=== PATIENT | female | born 1935 | race Caucasian/White ===

== ENCOUNTER → 2016-11-17 09:54 | Outpatient (CLI) | payer MEDICARE, OTHER ==
[2015-05-03 08:26] VITALS: BMI 20.8
[~2016-11-17 09:54] MED LIST: AMBIEN10 MG PO; CALCIUM 250+D T1 TAB PO; COLACE100 MG PO; COREG 3.1253.125 MG PO; ECOTRIN325 MG PO; EVISTA60 MG PO; HYDROCHLOROTH12.5 M1 PO; HYDROCODON-ACE1 EAC7 PO; IMDUR30 MG PO; PEPCID20 MG PO; PLAVIX75 MG PO; PRAVACHOL40 MG PO; PRINIVIL20 MG PO; TRANXENE T-TA3.75 MG PO; TRANXENE T-TAB7.5 MG PO; ULTRAM50 MG PO; ZESTORETIC 20/21 TAB PO
== END | disposition home or self-care (01) ==
LOC: D.US 09:54
DX: I70.219 Atherosclerosis of native arteries of extremities with intermittent claudication, unspecified extremity (principal); I73.9 Peripheral vascular disease, unspecified; I25.10 Atherosclerotic heart disease of native coronary artery without angina pectoris

== ENCOUNTER 2017-06-29 08:31 | Outpatient (CLI) | payer MEDICARE, OTHER ==
[~2017-06-29] VITALS: Ht 162.6 cm; Wt 52.7 kg
--- NOTE | ~2017-06-29 | HEMODYNAMI ---
PATIENT:HAYDEE KIRBY MEDICAL RECORD: [id number] : 39 [facility] [id number] ADMISSION DATE: 06/29/17 Generatedon:06/30/20179:05 Patient name: HAYDEE KIRBY Patient #: [id number] SSN : : 1935 Date of study: 06/30/2017 Page: Of Hemodynamic Procedure Report Patient Data Patient Demographics Procedure consent was obtained First Name: HAYDEE Gender: Female Last Name: KOFI : 1935 [facility] Initial: KALYN Age: 81 year(s) Patient #: [id number] Race: Additional ID: [id number] Contact details Address: [address] [place] [address] [place] State: [place] City: [place] Zip code: [address] Past Medical History History of disease Date Diagnosis Comments CAD Valvular heart disease Hypertension Allergies: No known allergies Admission Admission Data Admission Date: 06/29/2017 Admission Time: 8:31 Room #: 2128 Height (in.): 64 BSA: 1.55 (m2) Height (cm.): 162.56 BMI: 19.91 (kg/m2) Weight (lbs.): 116 Weight (kg.): 52.62 Lab Results Lab Result Date: 06/29/2017 Lab Result Time: 8:50 Biochemistry Name Units Result Min Max BUN mg/dl 65 --(----)-* 7 18 Creatinine mg/dl 1.1 --(--*-)-- 0.6 1.3 CBC Name Units Result Min Max Hematocrit % 31.1 *-(----)-- 42 54 Hemoglobin g/dl 10.6 *-(----)-- 13.5 17.5 Procedure Procedure Types Cath Procedure PCI Procedure Coronary Stent Initial PTCA Initial Miscellaneous Procedures Moderate Sedation up to 15 minutes Procedure Description Procedure Date Procedure Date: 06/30/2017 Procedure Start Time: 8:46 Procedure End Time: 9:02 Procedure Staff Name Function Magdaleno Mcgowan MD Performing Physician Kassandra Davis RT Scrub Isabell Cannon RN Nurse Juan Rey RT Monitor Procedure Data Cath Procedure Fluoroscopy Diagnostic fluoroscopy Total fluoroscopy Time: 3.8 time: 3.8 min min Diagnostic fluoroscopy Total fluoroscopy dose: 281 dose: 281 mGy mGy Contrast Material Contrast Material Type Amount (ml) Isovue 300 47 Entry Location Entry Primary Successful Side Size Upsize Upsize Entry Closure Succes sful Closure Location (Fr) 1 (Fr) 2 (Fr) Remarks Device Remarks Femoral Left 6 Fr Exoseal artery Short Estimated blood loss: 10 ml Procedure Complications No complications Procedure Medications Medication Administration Route Dosage Oxygen NC 2 l/min Lidocaine 2% added to field 20 Heparin Flush Bag added to field 2 bags (1000units/500ml NS) 0.9% NaCl I.V. 100 ml/hr Versed I.V. 1 mg Fentanyl I.V. 50 mcg Versed I.V. 1 mg Fentanyl I.V. 50 mcg Heparin Bolus I.V. 4000 units Hemodynamics Rest BSA: 1.55 (m2) HGB: 10.6 (g/dl) O2 Consumption: Estimated: 163.6 (ml/min) O2 Con sumption indexed: Estimated:105.55 (ml/min/m) Heart Rate: 111 (bpm) Snapshots Pre Cath Intra NCS Post Cath Vital Signs Time Heart Resp SPO2 NIBP (mmHg) Rhythm Pain Sedation Rate (ipm) (%) Status Level (bpm) 8:14:27 111 26 95 134/76(93) NSR 0 (11) 10(A) , No pain 8:18:33 113 21 96 135/74(101) NSR 0 (11) 10(A) , No pain 8:22:48 111 19 95 113/58(88) NSR 0 (11) 10(A) , No pain 8:26:58 104 28 96 93/60(74) NSR 0 (11) 10(A) , No pain 8:31:06 101 24 95 106/57(78) NSR 0 (11) 10(A) , No pain 8:35:12 100 22 94 100/62(67) NSR 0 (11) 10(A) , No pain 8:39:20 98 17 96 116/63(85) NSR 0 (11) 10(A) , No pain 8:43:34 98 32 94 104/56(76) NSR 0 (11) 10(A) , No pain 8:47:48 97 32 94 111/52(76) NSR 0 (11) 9(A) , No pain 8:52:04 97 28 94 91/49(66) NSR 0 (11) 9(A) , No pain 8:56:10 97 34 96 104/58(82) NSR 0 (11) 9(A) , No pain 9:00:19 93 26 94 105/61(80) NSR 0 (11) 10(A) , No pain Medications Time Medication Route Dose Verified Delivered Reason Notes Effectiveness by by 8:13:33 Oxygen NC 2 Magdaleno Whyte used for l/min Roslyn Cannon RN procedure 8:13:50 Lidocaine 2% added 20ml Magdaleno Magdaleno used for to vial Roslyn Mcgowan MD procedure field 8:14:59 Heparin Flush added 2 Magdaleno Magdaleno used for Bag to bags Roslyn Mcgowan MD procedure (1000units/500ml field NS) 8:15:09 0.9% NaCl I.V. 100 Magdaleno Whyte Per physician ml/hr Roslyn Cannon RN 8:43:36 Versed I.V. 1 mg Magdaleno Whyte for sedation Roslyn Cannon RN 8:43:42 Fentanyl I.V. 50 Magdaleno Whyte for sedation mcg Roslyn Cannon RN 8:47:22 Versed I.V. 1 mg Magdaleno Whyte for sedation Roslyn Cannon RN 8:47:26 Fentanyl I.V. 50 Magdaleno Whyte for sedation mcg Roslyn Cannon RN 8:48:35 Heparin Bolus I.V. 4000 Magdaleno Whyte for verifie d units Roslyn Cannon RN anticoagulation with dr mcgowan Procedure Log Time Note 7:38:21 Diagnostic Cath status Elective 7:45:48 Isabell Cannon RN sent for patient. Start room use. 8:13:33 Oxygen 2 l/min NC was administered by Isabell Cannon RN; used for procedure; 8:13:34 Vital chart was started 8:13:50 Lidocaine 2% 20ml vial added to field was administered by Magdaleno Mcgowan MD; used for procedure; 8:14:59 Heparin Flush Bag (1000units/500ml NS) 2 bags added to field was administered by Magdaleno Mcgowan MD; used for procedure; 8:15:09 0.9% NaCl 100 ml/hr I.V. was administered by Isabell Cannon RN; Per physician; 8:19:55 Time tracking: Regular hours 8:20:02 Plan of Care:Hemodynamics will remain stable., Cardiac rhythm will remain stable., Comfort level will be maintained., Respiratory function will remain adequate., Patient/ family verbilizes understanding of procedure., Procedure tolerated without complication., Recovers from procedure without complications.. 8:20:09 Patient received from PCU to CCL 2 Alert and oriented. Tansferred to table in Supine position. 8:20:09 Warm blankets applied, and judi hugger turned on for patient comfort. 8:20:10 Correct patient and procedure confirmed by team. 8:20:11 Signed procedure consent form obtained from patient. 8:20:12 ECG and BP/O2 sat monitors applied to patient. 8:20:14 Baseline sample Acquired. 8:20:27 Rhythm: sinus tachycardia 8:20:28 Full Disclosure recording started 8:21:22 H&P Date Dictated: 06/29/2017 Within 30 days and on chart.. 8:21:23 Pre-procedure instructions explained to patient. 8:21:23 Pre-op teaching completed and patient verbalized understanding. 8:21:27 Family in patients room. 8:21:28 Patient NPO since Midnight. 8:21:31 Patient allergic to No known allergies 8:21:34 Is the patient allergic to Iodine/contrast media? No. 8:21:35 Is patient on blood thinner?Yes 8:21:37 ACC The patient was administered the following blood thiners within the last 24 hours: ACCPlavix 8:21:38 Patient diabetic? No. 8:21:40 Previous problem with sedation/anesthesia? No ? 8:21:41 Snore? No 8:21:42 Sleep apnea? No 8:21:42 Deviated septum? No 8:21:43 Opens mouth fully? Yes 8:21:48 Sticks out tongue? Yes 8:21:50 Airway obstruction? No ? 8:21:52 Dentures? No ? 8:21:55 Pre procedure: left dorsailis pedis pulse 1+ Palpable, but thready & weak; easily obliterated 8:21:58 Patient pain scale 0/10 ?. 8:22:10 IV patent on arrival in right forearm with 0.9% NaCl at [facility]. 8::51 Lab Result : BUN 65 mg/dl 8::51 Lab Result : Creatinine 1.1 mg/dl 8::51 Lab Result : Hemoglobin 10.6 g/dl 8::51 Lab Result : Hematocrit 31.1 % 8:23:08 Cook 18G 7cm Percutaneous Entry needle opened to sterile field. 8:23:13 Lab results completed and on chart. 8:23:16 Left groin area was prepped with chlora-prep and draped in sterile fashion 8:23:17 Alarms reviewed by R. N. 8:23:18 Sharps counted by scrub and verified by R.N. 8:23:20 Use device set Femoral PCI 8:23:21 Tegaderm 4 x 4 opened to sterile field. 8:23:22 Acist Manifold opened to sterile field. 8:23:23 Acist Syringe opened to sterile field. 8:23:23 Acist Hand Control opened to sterile field. 8:23:25 Bag Decanter opened to sterile field. 8:23:25 Medline Cath Pack opened to sterile field. 8:23:26 Terumo 6Fr Clearfield Sheath opened to sterile field. 8:23:26 St Jose 260cm J .035 wire opened to sterile field. 8:23:26 Merit BasixCompak Inflation Kit opened to sterile field. 8:23:32 Guzman Whisper J 300cm 0.014 guide wire opened to sterile field. 8:34:48 Zero performed for pressure channel P1 8:38:47 Physician arrived 8:38:47 --------ALL STOP TIME OUT------ 8:38:48 Final Timeout: patient, procedure, and site verified with staff and physician. All members of the team are in agreement. 8:38:49 Left groin site verified by team. 8:38:52 Physical assessment completed. ASA score P 2 - A patient with mild systemic disease as per Magdaleno Mcgowan MD. 8:38:54 Sedation plan: IV Moderate Sedation Versed, Fentanyl 8:43:36 Versed 1 mg I.V. was administered by Buffie Cannon RN; for sedation; 8:43:42 Fentanyl 50 mcg I.V. was administered by Isabell Cannon RN; for sedation; 8:43:43 Cordis 6FR XBLAD 3.5 guide catheter opened to sterile field. 8:46:04 Procedure started. 8:46:08 Local anesthetic to left femerol artery with Lidocaine 2% by Magdaleno Mcgowan MD.INITIAL ACCESS ONLY 8:46:16 A 6 Fr Short sheath was inserted into the Left Femoral artery 8:47:01 6 Fr XBLAD 3.5 guide catheter was inserted over the wire 8:47:22 Versed 1 mg I.V. was administered by Isabell Cannon RN; for sedation; 8:47:26 Fentanyl 50 mcg I.V. was administered by Isabell Cannon RN; for sedation; 8:47:37 Guide Catheter removed. unable to cannulate vessel. 8:47:44 Cordis 6FR XBLAD 4.0 guide catheter opened to sterile field. 8:47:49 6 Fr XBLAD 4 guide catheter was inserted over the wire 8:48:35 Heparin Bolus 4000 units I.V. was administered by Isabell Cannon RN; for anticoagulation; verified with dr mcgowan 8:48:45 LCA angiography performed. 8:51:01 WHISPER wire advanced. 8:51:29 Wire advanced across lesion. 8:51:38 Inflation Number: 1 A Chilton OTW 2.5 x 15 stent was prepped and advanced across the Ramus. The stent was deployed at 11 ARTURO for 0:10 (min:sec). 8:52:10 Stent catheter was removed intact over wire. 8:52:16 Wire redirected to CX. 8:52:56 Wire advanced across lesion. 8:53:15 Inflation number: 1 The stent balloon was then re-inflated across the Mid CX to 11 ARTURO for 0:10 (min:sec). 8:53:26 Inflation number: 2 The stent balloon was then re-inflated across the Mid CX to 7 ARTURO for 0:10 (min:sec). 8:53:43 Balloon removed over the wire. 8:53:44 Wire removed. 8:53:44 Guide catheter removed. 8:53:50 Cordis 6Fr Exoseal opened to sterile field. 8:54:02 Sheath removed intact; hemostasis achieved with Exoseal to the Left Femoral artery. 8:54:03 Procedure ended.(Physican Out) 8:56:45 Fluoroscopy time 03.80 minutes. 8:56:50 Flurop Dose total: 281 8:56:50 Fluoroscopy dose: 281 mGy 8:57:11 Contrast amount:Isovue 300 47ml. 8:57:13 Sharps counted by scrub and verified by R.N. 8:57:18 Insertion/operative site no bleeding no hematoma. 8:57:21 Post-op/insertion site Left Femoral artery dressed using a 4 x 4 and Tegaderm. 8:57:26 Post left femerol artery:stable, soft, clean and dry 8:57:27 Post Procedure Pulses reassessed and unchanged 8:57:30 Post-procedure physical assessment completed. ASA score P 2 - A patient with mild systemic disease as per Magdaleno Mcgowan MD. 8:57:33 Post procedure rhythm: unchanged. 8:57:35 Estimated blood loss: 10 ml 8:57:36 Post procedure instruction explained to patient.Patient verbalizes understanding. 8:57:37 Patient needs reinforcement of post procedure teaching. 8:58:10 Procedure type changed to Cath procedure, PCI procedure, Coronary Stent Initial, PTCA Initial, Miscellaneous Procedures, Moderate Sedation up to 15 minutes 9:02:27 Procedure and supply charges have been captured, reviewed, submitted and are correct. 9:02:30 Procedure Complication : No complications 9:02:32 Vital chart was stopped 9:02:32 See physician's report for complete and final results. 9:02:34 Report given to PCU. 9:02:48 Patient transfered to PCU with Stretcher. 9:02:51 Procedure ended. 9:02:51 Full Disclosure recording stopped 9:02:55 End room use (Document Last) Intervention Summary Intervention Notes Time ActionType Lesion and Equipment Action# Pressure Duration Attributes Used 8:51:38 Place stent Ramus Chilton OTW 1 11 00:10 2.5 x 15 stent 8:53:15 Reinflate Mid CX Guan[place]ito OTW 1 11 00:10 stent 2.5 x 15 balloon stent 8:53:26 Reinflate Mid CX Chilton OTW 2 7 00:10 stent 2.5 x 15 balloon stent Device Usage Item Name Manufacture Quantity Catalog Hospital Part Current Minima l Lot# / Number Charge Number Stock Stock Serial# Code Ibex Outdoor Clothing 18G [facility] [id number] 11378 820187 5 Percutaneous Entry needle Tegaderm 4 x 3M 1 1626W 136451 955273 253697 5 4 Acist Acist 1 46256 712770 551925 389132 5 Manifold Medical [employer] Inc Acist Acist 1 32965 847702 836471 554339 20 Syringe Medical Systems Inc Acist Hand Acist 1 87263 804491 207901 985221 5 Control Medical Systems Inc Bag Decanter Microtek 1 2002S 635770 55549 448834 5 Medical Inc. Medline Cath Cardinal 1 [id number] 737768 85184 850066 5 Pack Health Terumo 6Fr Terumo 1 [id number] 876383 035136 448358 [address] Jose 1 770282 371348 073969 104364 30 260cm J .035 wire Merit Merit 1 [id number] 993797 325023 195459 15 BasixCompak Medical Inflation Kit Guzman Guzman 1 [id number] 574385 944217 844517 5 Whisper J Vascular 300cm 0.014 guide wire Cordis 6FR Cardinal 1 [id number] 032464 376989 798111 3 XBLAD 4.0 Health guide catheter Guan[place]ito OTW 2.5 Medtronic 1 [id number] 722535 72920 483140 5 [id number] x 15 stent Cordis 6Fr Cardinal 1 EX600 395692 634219 053265 10 Exoseal Health Cordis 6FR Cardinal 1 [id number] 020976 849311 412090 10 XBLAD 3.5 Health guide catheter Signature Audit [place] Stage Time Signature Unsigned Intra-Procedure 06/30/2017 Juan Rey 9:05:04 AM RT(R) Signatures Monitor : Juan Rey RT Signature : Date : Time : [facility] [address] [place] [address]
--- NOTE | ~2017-06-29 | HEMODYNAMI ---
PATIENT:HAYDEE KIRBY MEDICAL RECORD: [id number] : 39 LOCATION:[facility] ADMISSION DATE: 06/29/17 Generatedon:06/29/201711:03 Patient name: HAYDEE KIRBY Patient #: [id number] SSN : : 1935 Date of study: 06/29/2017 Page: Of Hemodynamic Procedure Report Patient Data Patient Demographics Procedure consent was obtained First Name: HAYDEE Gender: Female Last Name: KOFI : 1935 [facility] Initial: KALYN Age: 81 year(s) Patient #: [id number] Race: Additional ID: [id number] Contact details Address: [address] [place] [address] [place] State: [place] City: [place] Zip code: [address] Past Medical History History of disease Date Diagnosis Comments CAD Valvular heart disease Hypertension Allergies: No known allergies Admission Admission Data Admission Date: 06/29/2017 Admission Time: 8:31 Height (in.): 64 BSA: 1.55 (m2) Height (cm.): 162.56 BMI: 19.91 (kg/m2) Weight (lbs.): 116 Weight (kg.): 52.62 Procedure Procedure Types Cath Procedure Diagnostic Procedure LHC LHC w/Coronaries w/Grafts PCI Procedure PTCA Initial Miscellaneous Procedures Moderate Sedation up to 30 minutes Procedure Description Procedure Date Procedure Date: 06/29/2017 Procedure Start Time: 10:36 Procedure End Time: 11:03 Procedure Staff Name Function Magdaleno Mcgowan MD Performing Physician Gayla Augustin RT Scrub Roney Oneil RT Scrub Lan Martinez RN Nurse Mireya Joseph RT Monitor Peng Cesar RN Corporate Travel Manager Procedure Data Cath Procedure Fluoroscopy Diagnostic fluoroscopy Total fluoroscopy Time: time: 10.2 min 10.2 min Diagnostic fluoroscopy Total fluoroscopy dose: 305 dose: 305 mGy mGy Contrast Material Contrast Material Type Amount (ml) Isovue 300 105 Entry Location Entry Primary Successful Side Size Upsize Upsize Entry Closure Succes sful Closure Location (Fr) 1 (Fr) 2 (Fr) Remarks Device Remarks Femoral Right 6 Fr Exoseal artery Short Estimated blood loss: 10 ml Diagnostic catheters Device Type Used For End Catheter Placement Cordis 5Fr Pigtail LV Angiography Catheter (MP) Cordis 5Fr JL 4.0 Left Coronary Catheter (MP) Angiography Cordis 5Fr 3DRC Catheter Internal mammary (MP) arteriography Cordis 5Fr 3DRC Catheter Right Coronary (MP) Angiography Diagnostic Infinity 5Fr Right Coronary AR 2 MOD catheter Angiography Procedure Complications No complications Procedure Medications Medication Administration Route Dosage 0.9% NaCl I.V. 100 ml/hr Oxygen NC 2 l/min Heparin Flush Bag added to field 2 bags (1000units/500ml NS) Lidocaine 2% added to field 20 Versed I.V. 1 mg Fentanyl I.V. 50 mcg Fentanyl I.V. 50 mcg Heparin Bolus I.V. 4000 units Integrilin (Bolus I.V. 4.5 ml 2mg/ml) Hemodynamics Rest BSA: 1.55 (m2) O2 Consumption: Estimated: 160.84 (ml/min) O2 Consumption indexed : Estimated:103.77 (ml/min/m) Heart Rate: 106 (bpm) Snapshots Pre Cath Intra NCS Post Cath Vital Signs Time Heart Resp SPO2 etCO2 [id number] NIBP (mmHg) Rhythm Pain Sedation Rate (ipm) (%) (mmHg) (mmHg) Status Level (bpm) 10:18:17 92 21 96 0 0 136/75(104) NSR 0 (11) 10(A) , No pain 10:22:31 91 27 97 0 0 133/69(103) NSR 0 (11) 10(A) , No pain 10:26:45 76 25 98 0 0 118/64(90) NSR 0 (11) 10(A) , No pain 10:30:54 89 26 98 0 0 123/64(92) NSR 0 (11) 10(A) , No pain 10:35:04 80 35 97 0 0 109/63(83) NSR 0 (11) 10(A) , No pain 10:39:12 84 15 97 0 0 120/64(91) NSR 0 (11) 10(A) , No pain 10:43:24 140 29 98 0 0 113/59(81) NSR 0 (11) 9(A) , No pain 10:47:32 143 15 98 0 0 113/65(94) NSR 0 (11) 9(A) , No pain 10:51:42 103 16 97 0 0 107/62(81) NSR 0 (11) 10(A) , No pain 10:55:49 100 17 98 0 0 115/60(84) NSR 0 (11) 10(A) , No pain 11:00:01 92 16 98 0 0 109/60(87) NSR 0 (11) 10(A) , No pain Medications Time Medication Route Dose Verified Delivered Reason Notes Effectiveness by by 10:13:44 0.9% NaCl I.V. 100 Lan Lan Per physician ml/hr Juan Martinez RN RN 10:14:00 Oxygen NC 2 Lan Lan Per physician l/min Juan Martinez RN RN 10:14:19 Heparin Flush added 2 Lan Lan used for Bag to bags Juan Martinez procedure (1000units/500ml RN RN NS) 10:14:42 Lidocaine 2% added 20ml Lan Lan for local to vial Juan Martinez anesthetic RN RN 10:35:24 Versed I.V. 1 mg Lan Lan for sedation Juan Martinez RN RN 10:35:42 Fentanyl I.V. 50 Lan Lan for sedation mcg Juan Martinez RN RN 10:38:16 Fentanyl I.V. 50 Lan Lan for sedation mcg Juan Martinez RN RN 10:46:12 Heparin Bolus I.V. 4000 Lan Lan for units Juan Martinez anticoagulation RN RN 10:46:35 Integrilin I.V. 4.5 Lan Lan for (Bolus 2mg/ml) ml Juan Martinez antiplatelet RN RN therapy Procedure Log Time Note 9:58:04 Peng Cesar RN sent for patient. Start room use. 9:58:05 Time tracking: Regular hours 9:58:09 Plan of Care:Hemodynamics will remain stable., Cardiac rhythm will remain stable., Comfort level will be maintained., Respiratory function will remain adequate., Patient/ family verbilizes understanding of procedure., Procedure tolerated without complication., Recovers from procedure without complications.. 10:11:44 Patient received from ED to CCL 1 Alert and oriented. Tansferred to table in Supine position. 10:11:45 Warm blankets applied, and judi hugger turned on for patient comfort. 10:11:46 Correct patient and procedure confirmed by team. 10:11:47 Signed procedure consent form obtained from patient. 10:11:48 ECG and BP/O2 sat monitors applied to patient. 10:11:49 Full Disclosure recording started 10:13:44 0.9% NaCl 100 ml/hr I.V. was administered by Lan Martinez RN; Per physician; 10:14:00 Oxygen 2 l/min NC was administered by Lan Martinez RN; Per physician; 10:14:19 Heparin Flush Bag (1000units/500ml NS) 2 bags added to field was administered by Lan Martinez RN; used for procedure; 10:14:42 Lidocaine 2% 20ml vial added to field was administered by Lan Martinez RN; for local anesthetic; 10:17:13 Vital chart was started 10:18:55 Rhythm: sinus rhythm 10:19:10 H&P Date Dictated: 06/29/2017 ER History on chart.. 10:19:11 Pre-procedure instructions explained to patient. 10:19:12 Pre-op teaching completed and patient verbalized understanding. 10:19:13 Family in waiting room. 10:19:15 Patient NPO since Midnight. 10:19:23 Patient allergic to No known allergies 10:20:21 Is the patient allergic to Iodine/contrast media? No. 10:20:23 Is patient on blood thinner?Yes 10:20:25 ACC The patient was administered the following blood thiners within the last 24 hours: ACCPlavix 10:20:27 Patient diabetic? No. 10:20:30 Previous problem with sedation/anesthesia? No ? 10:20:31 Snore? No 10:20:32 Sleep apnea? No 10:20:32 Deviated septum? No 10:20:37 Opens mouth fully? Yes 10:20:38 Sticks out tongue? Yes 10:20:40 Airway obstruction? No ? 10:20:41 Dentures? No ? 10:20:44 Pre procedure: right dorsailis pedis pulse 2+ Normal; easily identifiable; not easily obliterated 10:20:46 Patient pain scale 0/10 ?. 10:20:58 IV patent on arrival in left hand with 0.9% NaCl at KVO. 10:21:48 Lab results completed and on chart. 10::51 Right groin area was prepped with chlora-prep and draped in sterile fashion 10::51 Alarms reviewed by R. N. 10::52 Sharps counted by scrub and verified by R.N. 10:22:01 Use device set Femoral Dx 10:22:02 Acist Syringe opened to sterile field. 10:22:03 Bag Decanter opened to sterile field. 10:22:03 Medline Cath Pack opened to sterile field. 10:22:04 St Jose 260cm J .035 wire opened to sterile field. 10:22:05 Acist Hand Control opened to sterile field. 10:22:05 Acist Manifold opened to sterile field. 10:22:06 Diagnostic Infinity 5Fr Multipack catheter opened to sterile field. 10:22:06 Tegaderm 4 x 4 opened to sterile field. 10:24:03 Baseline sample Acquired. 10:26:40 Physician paged 10::34 Patient Height : 64 inches 10:27:45 Patient Weight : 116 lbs 10:33:27 Final Timeout: patient, procedure, and site verified with staff and physician. All members of the team are in agreement. 10:33:30 Right groin site verified by team. 10:33:32 Physical assessment completed. ASA score P 2 - A patient with mild systemic disease as per Magdaleno Mcgowan MD. 10:33:34 Sedation plan: IV Moderate Sedation Versed, Fentanyl 10:35:24 Versed 1 mg I.V. was administered by Lan Martinez RN; for sedation; 10:35:42 Fentanyl 50 mcg I.V. was administered by Lan Martinez RN; for sedation; 10:36:17 Procedure started. 10:36:20 Local anesthetic to right femoral artery with Lidocaine 2% by Magdaleno Mcgowan MD.INITIAL ACCESS ONLY 10:36:35 A 6 Fr Short sheath was inserted into the Right Femoral artery 10:37:02 Terumo 6Fr Erin Sheath opened to sterile field. 10:38:10 A Cordis 5Fr Pigtail Catheter (MP) was advanced over the wire and used for LV Angiography. 10:38:13 LV gram done using TIAN 10:38:16 Fentanyl 50 mcg I.V. was administered by Lan Martinez RN; for sedation; 10:38:17 EF : 60 % 10:38:20 Injector settings: Ml/sec: 5, Volume: 15, 10:38:22 Catheter removed. 10:38:28 A Cordis 5Fr JL 4.0 Catheter (MP) was advanced over the wire and used for Left Coronary Angiography. 10:39:27 Catheter removed. 10:39:40 A Cordis 5Fr 3DRC Catheter (MP) was advanced over the wire and used for Internal mammary arteriography. 10:40:06 Guzman [employer].comisper J 300cm 0.014 guide wire opened to sterile field. 10:40:06 AstechCompaLIFT12 Inflation Kit opened to sterile field. 10:40:50 A Cordis 5Fr 3DRC Catheter (MP) was advanced over the wire and used for Right Coronary Angiography.removed, unable to cannulate 10:42:23 A Diagnostic Infinity 5Fr AR 2 MOD catheter was advanced over the wire and used for Right Coronary Angiography. 10:43:47 Catheter removed. 10:44:11 Medtronic Launcher 6Fr AR 1.0 guide catheter opened to sterile field. 10:44:22 6 Fr AR 1.0 guide catheter was inserted over the wire 10:45:27 Taquillaper wire advanced. 10:46:12 Heparin Bolus 4000 units I.V. was administered by Lan Martinez RN; for anticoagulation; 10:46:35 Integrilin (Bolus 2mg/ml) 4.5 ml I.V. was administered by Lan Martinez RN; for antiplatelet therapy; 10:47:39 Medtronic Launcher 6Fr HS II guide catheter opened to sterile field. 10:47:40 Wire removed. 10:47:46 Guide Catheter removed. unable to cannulate vessel. 10:49:26 6 Fr HS II guide catheter was inserted over the wire 10:49:31 Found[employer].comisper wire advanced. 10:51:24 Inflation number: 1 A Mozec Rx 3.5 x 14 balloon was prepped and advanced across the Dist RCA, then inflated to 17 ARTURO for 0:03 (min:sec). 10:51:33 Inflation number: 2 The Mozec Rx 3.5 x 14 balloon was reinflated across the Dist RCA, to 17 ARTURO for 0:05 (min:sec). 10:51:54 Inflation number: 3 The Mozec Rx 3.5 x 14 balloon was reinflated across the Dist RCA, to 17 ARTURO for 0:06 (min:sec). 10:52:13 Inflation number: 5 The Mozec Rx 3.5 x 14 balloon was reinflated across the Dist RCA, to 17 ARTURO for 0:05 (min:sec). 10:52:34 [place] [employer] Choice PT Extra Support J 300cm .014 gu opened to sterile field. 10:53:06 Choice PT ES wire advanced. 10:53:46 Inflation number: 6 The Mozec Rx 3.5 x 14 balloon was reinflated across the Dist RCA, to 9 ARTURO for 0:19 (min:sec). 10:54:21 Inflation number: 7 The Mozec Rx 3.5 x 14 balloon was reinflated across the Dist RCA, to 13 ARTURO for 0:15 (min:sec). 10:54:49 Inflation number: 8 The Mozec Rx 3.5 x 14 balloon was reinflated across the Dist RCA, to 13 ARTURO for 0:13 (min:sec). 10:55:18 Inflation number: 1 The Mozec Rx 3.5 x 14 balloon was reinflated across the Prox RCA, to 13 ARTURO for 0:05 (min:sec). 10:56:27 Balloon removed over the wire. 10:56:27 Wire removed. 10:56:28 Wire removed. 10:56:28 Guide catheter removed. 10:56:42 Sheath removed intact; hemostasis achieved with Exoseal to the Right Femoral artery. 10:56:45 Procedure ended.(Physican Out) 10:56:57 Fluoroscopy time 10.20 minutes. 10:57:02 Flurop Dose total: 305 10:57:02 Fluoroscopy dose: 305 mGy 10:57:06 Contrast amount:Isovue 300 105ml. 10:57:07 Sharps counted by scrub and verified by R.N. 10:57:08 Insertion/operative site no bleeding no hematoma. 10:57:11 Post-op/insertion site Right Femoral artery dressed using a 4 x 4 and Tegaderm. 10:57:14 Post right femoral artery:stable, clean and dry 10:57:16 Post Procedure Pulses reassessed and unchanged 10:58:55 Post-procedure physical assessment completed. ASA score P 2 - A patient with mild systemic disease as per Magdaleno Mcgowan MD. 10:58:57 Post procedure rhythm: unchanged. 10:59:00 Estimated blood loss: 10 ml 10:59:02 Post procedure instruction explained to patient.Patient verbalizes understanding. 10:59:02 Patient needs reinforcement of post procedure teaching. 10:59:18 Procedure type changed to Cath procedure, Diagnostic procedure, LHC, LHC w/Coronaries w/Grafts, PCI procedure, PTCA Initial, Miscellaneous Procedures, Moderate Sedation up to 30 minutes 10:59:24 Procedure Complication : No complications 10:59:26 See physician's report for complete and final results. 10:59:44 Cordis 6Fr Exoseal opened to sterile field. 11:00:46 Procedure and supply charges have been captured, reviewed, submitted and are correct. 11:03:17 Vital chart was stopped 11:03:20 Report given to PCU. 11:03:24 Patient transfered to PCU with Bed. 11:03:32 Procedure ended. 11:03:32 Full Disclosure recording stopped 11:03:37 End room use (Document Last) Intervention Summary Intervention Notes Time ActionType Lesion and Equipment Action# Pressure Duration Attributes Used 10:51:24 Inflate Dist RCA Mozec Rx 1 17 00:03 balloon 3.5 x 14 balloon 10:51:33 Reinflate Dist RCA Mozec Rx 2 17 00:05 balloon 3.5 x 14 balloon 10:51:54 Reinflate Dist RCA Mozec Rx 3 17 00:06 balloon 3.5 x 14 balloon 10:52:13 Reinflate Dist RCA Mozec Rx 5 17 00:05 balloon 3.5 x 14 balloon 10:53:46 Reinflate Dist RCA Mozec Rx 6 9 00:19 balloon 3.5 x 14 balloon 10:54:21 Reinflate Dist RCA Mozec Rx 7 13 00:15 balloon 3.5 x 14 balloon 10:54:49 Reinflate Dist RCA Mozec Rx 8 13 00:13 balloon 3.5 x 14 balloon 10:55:18 Reinflate Prox RCA Mozec Rx 1 13 00:05 balloon 3.5 x 14 balloon Device Usage Item Name Manufacture Quantity Catalog Number [facility] Lot# / Charge Number Stock Stock Serial# Code [facility] 1 [id number] 283503 [id number] 20 In[employer]Path [employer] Inc Bag Microtek 1 2001S 666472 86525 183450 5 [place] Medline Cardinal 1 [id number] 609736 97770 223419 [address] [facility] [address] [facility] 1 866493 135885 933930 216156 30 260cm J .035 wire Acist Hand Acist 1 99549 773973 356066 484755 5 Control Medical Systems Inc Acist Acist 1 68812 562630 372169 050772 5 Manifold Medical Systems Inc Diagnostic Cardinal 1 [id number] 174570 71874 622833 30 Infinity Health 5Fr Multipack catheter Tegaderm 4 3M 1 1626W 419002 865333 825518 5 x 4 Terumo 6Fr Terumo 1 TNW371 074785 133263 936053 40 Erin Sheath Cordis 5Fr Cardinal 1 600203 5 Pigtail Health Catheter (MP) Cordis 5Fr Cardinal 1 485401 5 JL 4.0 Health Catheter (MP) Cordis 5Fr Cardinal 1 510709 5 3DRC Health Catheter (MP) Guzman Guzman 1 [id number] 444896 802636 876970 5 Whisper J Vascular 300cm 0.014 guide wire Merit Merit 1 [id number] 892886 819313 593230 15 Kleo Medical Inflation Kit Diagnostic Cardinal 1 [id number] 471451 361193 476539 20 Infinity Health 5Fr AR 2 MOD catheter Medtronic Medtronic 1 [id number] 844405 39875 019285 1 Launcher 6Fr AR 1.0 guide catheter Medtronic Medtronic 1 [id number] 965999 00071 081385 1 Launcher 6Fr HS II guide catheter Mozec Rx Cardinal 1 [id number] 508997 504990307 951275 5 UMOA77 3.5 x 14 Health balloon [place] Sci [place] 1 [id number] 159112 801382 951695 5 Choice PT Scientific Extra Support J 300cm .014 gu Cordis 6Fr Cardinal 1 EX600 621753 664225 207576 10 Evtron Signature Audit [place] Stage Time Signature Unsigned Intra-Procedure 06/29/2017 Mireya 11:03:47 AM Counts RT(R) Signatures Monitor : Mireya Signature : Counts RT Date : Time : [facility] [address] [place] [address]
[2017-06-29 08:56] LABS: BASOPHILS 0.3 % (0-2); EOSINOPHILS 4.4 % (0-7); HEMATOCRIT 31.1 % (36.0-48.0); HEMOGLOBIN 10.6 g/dL (12-16); IMMATURE GRANULOCYTES 0.4 % (0-5); LYMPHOCYTES 21.5 % (15-50); MCH 32.2 pg (26.0-34.0); MCHC 34.1 g/dL (31.0-37.0); MCV 94.5 fL (80.0-100.0); MEAN PLATELET VOLUME 10.5 fL (7.4-10.4); MONOCYTES 8.5 % (2-11); NEUTROPHILS 64.9 % (40-80); PLATELET COUNT 298 10x3/uL (130-400); RBC 3.29 10x6/uL (4.00-5.40); RDW 13.4 % (11.5-14.5); WBC 11.6 10x3/uL (4.8-10.8)
[2017-06-29 09:09] LABS: ALBUMIN 3.8 g/dL (3.4-5.0); ALKALINE PHOSPHATASE 47 U/L (46-116); ALT (SGPT) 19 U/L (10-68); BILIRUBIN - TOTAL 0.56 mg/dL (0.2-1.3); CALC OSMOLALITY 284 mosm/kg (275-300); CALCIUM 8.9 mg/dL (8.5-10.1); CARBON DIOXIDE 22.8 mmol/L (21.0-32.0); CHLORIDE - SERUM 100 mmol/L (98-107); CREATININE - SERUM 1.1 mg/dL (0.6-1.3); GLUCOSE 101 mg/dL (74-106); POTASSIUM - SERUM 5.1 mmol/L (3.5-5.1); PROTEIN - SERUM 7.1 g/dL (6.4-8.2); SODIUM 133 mmol/L (136-145); UREA NITROGEN 65 mg/dL (7-18); eGFR NON AFRICAN AMERICAN 51 mL/min (90-120)
[2017-06-29 09:25] LABS: CHOL - HDL RATIO 2.1 ratio (2.3-4.1); CHOLESTEROL, TOTAL 138 mg/dL (0-200); CKMB 0.6 U/L (0.0-3.6); CREATINE KINASE 58 UL (21-215); HDL CHOLESTEROL 65 mg/dL (32-96); LDL CHOLESTEROL 58 mg/dL (0-100); LDL-HDL RATIO 0.9 ratio (1.5-3.5); TRIGLYCERIDE 76 mg/dL (30-200); TROPONIN-I < 0.017 ng/mL (0.000-0.060)
[2017-06-29] MEDS ORDERED: ALEVE220 MG PO (11:25)
[2017-06-29] MEDS ORDERED: FUROSEMIDE20 MG PO (11:27)
[2017-06-29] MEDS ORDERED: NORVASC5 MG PO (11:27)
[2017-06-29 11:32] VITALS: BP 102/55; Ht 162.6 cm; Wt 52.7 kg
--- NOTE | 2017-06-29 11:48 | NUR ---
PT ARRIVED FROM [facility]. VICKY DRSG CDI NO S/S OF BLEEDING OR HEMATOMA NOTED. PERIPHERAL PULSES INTACT. VSS AND BEING MONITERED Q15MIN PROTOCOL. PT REQUEST ICE CHIPS AND WAS PROVIDED WITH SOME. PT IS TO LAY FLAT FOR 4 HOURS AND VERBALIZED UNDERSTANDING. PT RESTING WITH DAUGHTER AT BEDSIDE. NO FURTHER NEEDS NOTED AT THIS TIME. CL IN REACH, BED IN LOWEST, SIDE RAILS X2. WILL CPOC.
[2017-06-29 12:00] VITALS: BP 104/58
[2017-06-29 12:10] VITALS: BP 106/72
--- NOTE | 2017-06-29 12:31 | NUR ---
VSS. PT NEEDING TO USE BEDPAN. ASSISTED HER AND KEPT R.LEG STRAIGHT. PERIPHERAL PULSES INTACT. PT DENIES ANY CURRENT NEEDS. WILL CPOC.
--- NOTE | 2017-06-29 14:28 | NUR ---
ASSISTED PT ONTO BEDPAN. PT VOIDED SMALL AMOUNT CLEAR YELLOW URINE. PT HAS 30 MINS LEFT OF HER BEDREST. PERIPHERAL PULSES INTACT AND VSS. R.GROIN DRSG CDI NO S/S OF BLEEDING OR HEMATOMA NOTED. WILL CPOC.
--- NOTE | 2017-06-29 15:03 | NUR ---
4 HOUR LAY COMPLETED. ASSISTED PT UP IN BED. VICKY DRSG CDI NO S/S OF BLEEDING OR HEMATOMA NOTED. PERIPHERAL PULSES INTACT. WILL CPOC.
[2017-06-29 17:05] VITALS: BP 111/57
--- NOTE | 2017-06-29 17:49 | NUR ---
CONSENTS OBTAINED FOR CATH TOMORROW. PT NPO AFTER MIDNIGHT AND VERBALIZED UNDERSTANDING. PT LYING BACK IN BED C/O BLADDER IRRITATION AND PAIN REQUESTING HER PRN PYRIDIUM HOWEVER MEDICATION IS UNAVAILABLE IN [facility]. NOTIFIED PHARMACY AND AWAITING THEM TO PROVIDE IT.
[2017-06-29 19:00] VITALS: BP 94/58
--- NOTE | 2017-06-29 19:30 | NUR ---
RESTING QUIETLY WATCHING TV DENIES ANY NEEDS OR DISCOMFORT NAD NOTED
--- NOTE | 2017-06-29 21:47 | NUR ---
UP WITH ASSIST TO BR, GAIT STEADY, PT WEAK.
--- NOTE | 2017-06-29 22:38 | NUR ---
UP WITH ASSIST TO BR.
[2017-06-30] VITALS: BP 109/65
--- NOTE | 2017-06-30 02:58 | NUR ---
RESTING WITH EYES CLOSED, RESPERATIONS EVEN, NO S/S DISTRESS NOTED.
--- NOTE | 2017-06-30 03:50 | NUR ---
UP WITH ASSIST TO BR.
[2017-06-30 04:37] VITALS: BP 137/72
--- NOTE | 2017-06-30 05:43 | NUR ---
ASSISTED PT UP TO BR AND THEN BACK TO BED. CLEANED OFF PTS BED SIDE TABLE AND NOTICED 2 SMALL CLEAR CUPS, THAT ARE NOT FURNISHED BY THE HOSPITAL, ASKED PT WHAT SHE HAD, HAD IN THE CLEAR CUPS, PT STATED THAT SHE HAD A VODKA TONIC WITH HER DAUGHTER AT DINNER TIME AND DOES IT ALL OF THE TIME AND HAS DONE IT BEFORE ON HER LAST HOSPITAL STAY. TOLD PT THAT IT IS AGAINST HOSPITAL POLICY TO HAVE ALCOHOL BROUGHT INTO THE HOSPITAL AND FOR IT TO BE CONSUMED BY HOSPITAL PATIENTS, THAT IS CAN BE DANGEROUS DUE TO SIDE EFFECTS OF MIXING ALCOHOL WITH MEDICATIONS.
--- NOTE | 2017-06-30 08:00 | NUR ---
OUT TO HEEL BLACKER
--- NOTE | 2017-06-30 08:59 | CN ---
PATIENT NAME:HAYDEE KIRBY MEDICAL RECORD: [id number] : 39 LOCATION:. D.2128 ADMIT DATE: ACCOUNT: [id number] CONSULTING PHYSICIAN: JOLANTA BRYSON MD REFERRING PHYSICIAN: JOLANTA BRYSON MD DATE OF CONSULTATION: 06/29/2017 DIAGNOSES: 1. Unstable angina. 2. Coronary artery disease. 3. Status post coronary bypass graft surgery. 4. Status post previous percutaneous transluminal coronary angioplasty stent. 5. Hypertension. HISTORY OF PRESENT ILLNESS: Mrs. Kirby presents with 2 days of chest discomfort like her previous angina. She is status post coronary bypass graft surgery, status post previous PTCA stent. She continues to have the episodes of chest pain. Her EKG is with a left bundle branch block. PHYSICAL EXAMINATION: GENERAL APPEARANCE: Well-nourished, well-developed, appears stated age. Level of distress, comfortable. PSYCHIATRIC: Mental status, alert, normal affect. Orientation, oriented to time, place and person. EYES: Lids and conjunctiva, noninjected. No discharge, no pallor. ENT: Lips, teeth, gums, normal dentition. Oropharynx, no cyanosis, no pallor. NECK: Carotid arteries, bilateral normal upstroke, no bruits, no thrills. JUGULAR VEINS: No jugular venous pressure or distention. CERVICAL LYMPH NODES: Nontender, nonenlarged. THYROID: Not enlarged. Nontender. No nodules. LUNGS: Respiratory effort, unlabored. CHEST: Normal curvature. No thoracic deformity. No chest wall tenderness. Percussion, resonant. Auscultation, clear. No wheezes, no rales, no rhonchi. CARDIOVASCULAR: Precordial exam, nondisplaced. No heaves or pericardial thrills. Rate and rhythm, regular. Heart sounds, normal S1, normal S2. No S3, no gallop, no rub. Systolic murmur, not heard. Diastolic murmur, not heard. EXTREMITIES: No cyanosis, no edema. Peripheral pulses, full and equal in all extremities, except as noted. No bruits appreciated. ABDOMEN: Soft, nondistended. Normal aorta. No bruit. Nontender. No masses. Liver, nontender, no hepatomegaly. Spleen, nontender, no splenomegaly. MUSCULOSKELETAL: No joint tenderness. No joint swelling. No erythema. NEUROLOGICAL: Normal gait, normal strength, normal tone. SKIN: Warm and dry. REVIEW OF SYSTEMS: The patient reports easy bruising but reports no swollen glands. The patient reports no fever, no night sweats, no significant weight gain, no significant weight loss. No significant exercise tolerance. The patient reports no dry eyes, no irritation, no vision change. Patient reports no difficulty hearing and no ear pain. Patient reports no frequent nose bleeds or nose and sinus problems. Patient reports on arm pain on exertion. No shortness of breath while lying down. No history of heart murmur. Patient reports no cough, no wheezing or coughing up blood. Patient reports no abdominal pain, no vomiting. Normal appetite. No diarrhea and not vomiting blood. No nausea and no constipation. Patient reports no incontinence. No difficulty urinating. No hematuria. No increased frequency. Patient reports CONSULT REPORT [id number] HAYDEE KIRBY no muscle aches. No weakness, no arthralgias, no back pain. No swelling of the extremities. Patient reports no abnormal mole, no jaundice, no rashes. Reports no loss of consciousness. No weakness and no numbness. No seizures, dizziness, or headaches. The patient reports no depression, no sleep disturbance, feeling safe in a relationship and no alcohol abuse. Patient reports on fatigue. Reports no runny nose or sinus pressure. No itching, no hives, and no frequent sneezing. OVERALL IMPRESSION: Unstable angina just like that of her previous angina. Most likely, she has recurrent hemodynamically significant disease. We will proceed with coronary angiography. Further care depends upon findings of the angiography. TRANSINT:[id number] Voice Confirmation ID: [id number] DOCUMENT ID: [id number] JOLANTA BRYSON MD at 0859 CC: [id number] DICTATION DATE: 06/29/17 0931 ICE SKATING COACH: 06/29/17 1427 [facility] [address] [place] [address]
--- NOTE | 2017-06-30 09:23 | NUR ---
BACK FROM MAGNETIC TAPE WINDER
--- NOTE | 2017-06-30 10:19 | NUR ---
C/O PAIN 07/27 FROM [facility] - DR. BRYSON NOTIFIED AND ORDERED PAIN MEDS
[2017-06-30 12:40] VITALS: BP 137/67
--- NOTE | 2017-06-30 15:53 | NUR ---
ALERT AND ORIENTED X4. LT GROIN DRESSING CLEAN DRY INTACT. FREEE FROM BLEEDING. SITTING UP IN THE CHAIR. FAMILY AT BEDSIDE. REFUSE SCDs WHILE OUT OF BED. CHAIR LOCKED. CALL LIGHT IN REACH. SINUS TACH 104bpm ON TELEMETRY.
--- NOTE | 2017-06-30 15:55 | NUR ---
UP TO CHAIR - VSS - NO HEMATOMA/EDEMA NOTED - PEDAL PULSES 2+ BILATERAL - DENIES ANY NEEDS AT THIS TIME
[2017-06-30] MEDS ORDERED: PLAVIX75 MG PO (16:00)
--- NOTE | 2017-06-30 18:23 | NUR ---
PT PALE IN COLOR AND SHAKEY WHEN I WENT IN TO DISCHARGE - VSS - NO CONFUSION - NO BLEEDING - PULSES 2+ BILATERAL LOWER EXTREMITIES - DAUGHTER AT BEDSIDE - DISCUSSED STAYING ANOTHER NIGHT WITH PT - SHE STATED " I AM LEAVING AMA IF YOU DO NOT LET ME GO" - DAUGHTER HAD NO COMMENT TO SITUATION - DISCHARGE INSTRUCTIONS GIVEN AND SIGNED - NO QUESTIONS/CONCERNS
--- NOTE | 2017-06-30 19:10 | NUR ---
PT DISCHARGED. DISCHARGE PAPERS SIGNED, NO QUESTIONS OR CONCERNS. DENIES ANY NEEDS. PT TRANSFERED TO CAR VIA WHEELCHAIR.
--- NOTE | 2017-07-01 12:22 | OP ---
PATIENT NAME: HAYDEE KIRBY MEDICAL RECORD: [id number] :39 LOCATION:D.CAT ADMISSION DATE: SURGEON: JOLANTA BRYSON MD DATE OF OPERATION: 06/30/2017 PROCEDURES: 1. PTCA stent left circumflex, ramus intermedius. 2. PTCA left circumflex. 3. Selective coronary angiography. INDICATION: Angina and coronary artery disease. PROCEDURE IN DETAIL: After informed consent was obtained and after a detailed explanation of the risks, benefits as well as alternative therapies, the patient elected to proceed with angiogram and angioplasty. The left femoral area was prepped and draped in normal sterile fashion. Left femoral artery was cannulated via modified Seldinger technique with placement of 6-Faroese sheath. All catheters exchanged through this sheath. FINDINGS: The left circumflex has a ramus intermedius that has 80% stenosis in the left circumflex has previously placed stents with 80% in-stent restenosis in circumflex addressed with a 2.5 x 15 mm [place] stent. The stent balloon was used for the circumflex. Result was 0% residual stenosis. OVERALL IMPRESSION: Successful percutaneous transluminal coronary angioplasty stent and percutaneous transluminal coronary angioplasty of the left circumflex going from 80% initial stenosis to 0% residual stenosis. TRANSINT:[id number] Voice Confirmation ID: [id number] DOCUMENT ID: [id number] JOLANTA BRYSON MD at 1222 CC: [id number] DICTATION DATE: 06/30/17 0900 WHIP SAWYER: 06/30/17 1042 DEP CLI 06/30/17 [place] [id number]
--- NOTE | 2017-07-01 12:22 | OP ---
PATIENT NAME: HAYDEE KIRBY MEDICAL RECORD: [id number] :39 LOCATION:D.CAT ADMISSION DATE: SURGEON: JOLANTA BRYSON MD DATE OF OPERATION: 06/29/2017 PROCEDURES: 1. PTCA RCA for in-stent restenosis. 2. Left heart catheterization. 3. Selective coronary angiography. 4. Left ventriculogram. INDICATION: Unstable angina. PROCEDURE IN DETAIL: After informed consent was obtained and after detailed explanation of risks, benefits as well as alternative therapies, the patient elected to proceed with angiogram and angioplasty. The right femoral area is prepped and draped in normal sterile fashion. The right femoral artery was cannulated via modified Seldinger technique with placement of 6-[place]an sheath. All catheters exchanged through this sheath. FINDINGS: The left ventriculogram was performed in standard 30-degree TIAN view, reveals good cardiac wall motion throughout all segments. Overall ejection fraction estimated at 60%. SELECTIVE CORONARY ANGIOGRAPHY: 1. Left main has no significant angiographic disease. 2. Left anterior descending is totally occluded. 3. [place] to the LAD is widely patent. Distal LAD is widely patent. 4. Left circumflex has previously placed stents with up to 80% in-stent restenosis in the mid vessel. 5. The right coronary has previously placed stents. Two areas of 80% in-stent restenosis throughout. PTCA OF THE RCA: High pressure PTCA was done with a 3.5 balloon taken to 17 atmospheres. Result was 0% residual stenosis. OVERALL IMPRESSION: Successful high pressure percutaneous transluminal coronary angioplasty of the RCA for in-stent restenosis going from 80% initial stenosis times 2 to 0% residual stenosis. Plan for PTCA or PTCA stent of the left circumflex in the near future. TRANSINT:[id number] Voice Confirmation ID: [id number] DOCUMENT ID: [id number] JOLANTA BRYSON MD at 1222 CC: [id number] DICTATION DATE: 06/29/17 1102 WINDOWS ADMIN: 06/29/17 1722 DEP CLI 06/30/17 [facility] [address] [place] [address]
--- NOTE | 2017-07-01 12:22 | DS ---
PATIENT:HAYDEE KIRBY :39 MEDICAL RECORD: [id number] DISCHARGE SUMMARY ADMISSION DATE: 06/29/17 DISCHARGE DATE: 06/30/17 DATE OF SERVICE: 06/30/2017 DIAGNOSES: 1. Angina. 2. Coronary artery disease. 3. Percutaneous transluminal coronary angioplasty stent left circumflex and percutaneous transluminal coronary angioplasty right coronary artery this admission. 4. Hypertension. 5. Hyperlipidemia. HOSPITAL COURSE: Mrs. Kirby presents with unstable angina, found to have 2-vessel coronary artery disease to the RCA, which was an in-stent restenosis and of the left circumflex, underwent PTCA stent of the left circumflex, high pressure balloon dilatation of the RCA, discharged home with the addition of aspirin and Plavix to her medical regimen. Will follow up with [facility] in 1 month. TRANSINT:[id number] Voice Confirmation ID: [id number] DOCUMENT ID: [id number] JOLANTA BRYSON MD at 1222 CC: [id number] DICTATION DATE: 06/30/17 0858 HAIR WEAVER: 06/30/17 2358 DEP CLI 06/30/[address] [address]
== END 2017-06-30 19:10 | disposition home or self-care (01) ==
LOC: D.M2 08:31 → D.ER 08:31 → D.CATH 08:31 → EDSTATUS 10:10 → D.M2 11:18 → D.CATH 06-30 19:10
PROVIDERS: Emergency Medicine
DX: I25.119 Atherosclerotic heart disease of native coronary artery with unspecified angina pectoris (principal); I10 Essential (primary) hypertension; E78.5 Hyperlipidemia, unspecified; Z01.812 Encounter for preprocedural laboratory examination
CPT/HCPCS: 92920; 93458; C9600

== ENCOUNTER 2017-07-02 08:00 | Inpatient (IN) | payer MEDICARE, OTHER ==
[~2017-07-02] VITALS: Ht 162.6 cm; Wt 52.9 kg
[2017-07-02] VITALS (14 sets, daily range): BP systolic 114–143; BP diastolic 59–84; BMI 19.9
--- NOTE | ~2017-07-02 | CN ---
PATIENT NAME:HAYDEE KIRBY MEDICAL RECORD: [id number] : 39 LOCATION:ARTEMIOID.CV08 ADMIT DATE: 07/02/17 ACCOUNT: [id number] CONSULTING PHYSICIAN: JOLANTA BRYSON MD REFERRING PHYSICIAN: RENEA SANDERS MD DATE OF CONSULTATION: 07/02/2017 ADMITTING DIAGNOSES: 1. Anemia. 2. Coronary artery disease. 3. Recent percutaneous transluminal coronary angioplasty stent 2 vessels, RCA and circumflex. HISTORY OF PRESENT ILLNESS: Mrs. Kirby presents with shortness of breath and overall feeling bad. Today, she developed GI symptomatology of nausea, but no vomiting, multiple episodes of belching. She had a stool yesterday, she did not look at it. Her hemoglobin was 4.5. Today, she has no history of GI bleed. She was just started on the Plavix 2 days ago as she is status post recent PTCA stent. PHYSICAL EXAMINATION: GENERAL APPEARANCE: Well-nourished, well-developed, appears stated age. Level of distress, comfortable. PSYCHIATRIC: Mental status, alert, normal affect. Orientation, oriented to time, place and person. EYES: Lids and conjunctiva, noninjected. No discharge, no pallor. ENT: Lips, teeth, gums, normal dentition. Oropharynx, no cyanosis, no pallor. NECK: Carotid arteries, bilateral normal upstroke, no bruits, no thrills. JUGULAR VEINS: No jugular venous pressure or distention. CERVICAL LYMPH NODES: Nontender, nonenlarged. THYROID: Not enlarged. Nontender. No nodules. LUNGS: Respiratory effort, unlabored. CHEST: Normal curvature. No thoracic deformity. No chest wall tenderness. Percussion, resonant. Auscultation, clear. No wheezes, no rales, no rhonchi. CARDIOVASCULAR: Precordial exam, nondisplaced. No heaves or pericardial thrills. Rate and rhythm, regular. Heart sounds, normal S1, normal S2. No S3, no gallop, no rub. Systolic murmur, not heard. Diastolic murmur, not heard. EXTREMITIES: No cyanosis, no edema. Peripheral pulses, full and equal in all extremities, except as noted. No bruits appreciated. ABDOMEN: Soft, nondistended. Normal aorta. No bruit. Nontender. No masses. Liver, nontender, no hepatomegaly. Spleen, nontender, no splenomegaly. MUSCULOSKELETAL: No joint tenderness. No joint swelling. No erythema. NEUROLOGICAL: Normal gait, normal strength, normal tone. SKIN: Warm and dry. REVIEW OF SYSTEMS: The patient reports easy bruising but reports no swollen glands. The patient reports no fever, no night sweats, no significant weight gain, no significant weight loss. No significant exercise tolerance. The patient reports no dry eyes, no irritation, no vision change. Patient reports no difficulty hearing and no ear pain. Patient reports no frequent nose bleeds or nose and sinus problems. Patient reports on arm pain on exertion. No shortness of breath while lying down. No history of heart murmur. Patient reports no cough, no wheezing or coughing up blood. Patient reports no abdominal pain, no vomiting. Normal appetite. No diarrhea and not vomiting blood. No nausea and no constipation. Patient reports no incontinence. No CONSULT REPORT [id number] HAYDEE KIRBY difficulty urinating. No hematuria. No increased frequency. Patient reports no muscle aches. No weakness, no arthralgias, no back pain. No swelling of the extremities. Patient reports no abnormal mole, no jaundice, no rashes. Reports no loss of consciousness. No weakness and no numbness. No seizures, dizziness, or headaches. The patient reports no depression, no sleep disturbance, feeling safe in a relationship and no alcohol abuse. Patient reports on fatigue. Reports no runny nose or sinus pressure. No itching, no hives, and no frequent sneezing. OVERALL IMPRESSION: Most likely this is an acute gastrointestinal bleed from gastric ulcer disease. We will have GI look at her. Obviously, we will hold the Plavix and aspirin at this time as the bleed is more life threatening than the coronary disease. She is getting blood. She is hemodynamically stable now with the blood. Further care depends upon the results with the transfusion and the site of bleeding. TRANSINT:[id number] Voice Confirmation ID: [id number] DOCUMENT ID: [id number] JOLANTA BRYSON MD CC: [id number] DICTATION DATE: 07/02/17 1303 WELDING MACHINE OPERATOR GAS METAL ARC: 07/02/17 1509 [facility] [place] [address] [place] [address]
--- NOTE | ~2017-07-02 | EC ---
PATIENT:HAYDEE KIRBY DATE OF SERVICE: 07/02/17 SEX: F MEDICAL RECORD: [id number] DATE OF : 39 LOCATION:[place] [address] AGE OF PATIENT: 81 ADMISSION DATE: 07/02/17 REFERRING PHYSICIAN: INTERPRETING PHYSICIAN: JOLANTA MCGOWAN MD ECHOCARDIOGRAM REPORT ECHO CHARGES 5 ECHO LIMITED CLINICAL DIAGNOSIS: REASSESS EF DUE TO RECENT CHF AND LOW EF OF 15% ECHOCARDIOGRAPHIC MEASUREMENTS (adult normal given) AC root (d.<3.7cm) 2.3 cm LV Septum d (<1.2 cm> 0.80 cm Valve Excursion 1.1 cm LV Septum (systole) 0.90 cm Left Atria (s.<4.0cm> 2.7 cm LVPW d(<1.2cm) 0.80 cm RV (d.<2.3cm) 3.6 cm LVPW (sytole) 1.0 cm LV diastole(<5.6CM) 4.8 cm MV E-F(>70mm/sec) cm LV systole 4.2 cm LVOT Diameter 1.5 cm MV exc.(>10mm) 1.2 cm Est.ejection fraction (50-75%) % Pericardial Effusion N DOPPLER: LVIT cm/sec A 81.0 cm/sec E 42.0 cm/sec LA cm/sec RVSP 26 mmHg LVOT 75 cm/sec AOP1/2T m/s Asc. Ao 90 cm/sec RVOT 49 cm/sec RA cm/sec PA 77 cm/sec AV Gradient Peak 3.27 mmHg AV Mean 1.67 mmHg AV Area 1.9 cm MV Gradient Peak 2.81 mmHg MV Mean 0.93 mmHg MV Area cm COMMENTS: Staff Radiographer: 2 ZE MUNIZ Retrofit Installer: 1 Dr. Mcgowan TAPE# PACS DATE OF SERVICE: 07/06/2017 PROCEDURE: Limited echo for ejection fraction. FINDINGS: Left ventricular chamber size is mildly dilated. Left ventricular systolic function is 25%. This is a marked improvement from her previous ejection fraction of 10%. TRANSINT:[id number] Voice Confirmation ID: [id number] DOCUMENT ID: [id number] ECHOCARDIOGRAM REPORT [id number] HAYDEE KIRBY JOLANTA MCGOWAN MD CC: [id number] DICTATION DATE: 07/06/17 1241 FLOW MANAGER: 07/06/[address] [facility] [address] [place] [id number]
[~2017-07-02 08:00] MED LIST changes: +ALEVE220 MG PO; +FUROSEMIDE20 MG PO; +NORVASC5 MG PO
[2017-07-02 08:34] LABS: MCH 32.7 pg (26.0-34.0); MCHC 32.7 g/dL (31.0-37.0); MEAN PLATELET VOLUME 9.8 fL (7.4-10.4); PLATELET COUNT 234 10x3/uL (130-400); RDW 14.6 % (11.5-14.5); WBC 23.6 10x3/uL (4.8-10.8)
[2017-07-02 08:36] LABS: HEMATOCRIT 15.9 % (36.0-48.0); HEMOGLOBIN 5.2 g/dL (12-16); RBC 1.59 10x6/uL (4.00-5.40)
[2017-07-02 08:38] LABS: APTT 30.1 SECONDS (22.8-39.4); INR 1.41 (0.85-1.17); PROTIME 17.1 SECONDS (11.6-15.0)
[2017-07-02 08:42] LABS: ALBUMIN 3.3 g/dL (3.4-5.0); ALKALINE PHOSPHATASE 32 U/L (46-116); ALT (SGPT) 63 U/L (10-68); BILIRUBIN - TOTAL 0.82 mg/dL (0.2-1.3); CALC OSMOLALITY 279 mosm/kg (275-300); CALCIUM 8.9 mg/dL (8.5-10.1); CARBON DIOXIDE 13.7 mmol/L (21.0-32.0); CHLORIDE - SERUM 101 mmol/L (98-107); CREATININE - SERUM 1.5 mg/dL (0.6-1.3); GLUCOSE 128 mg/dL (74-106); POTASSIUM - SERUM 4.7 mmol/L (3.5-5.1); PROTEIN - SERUM 6.3 g/dL (6.4-8.2); SODIUM 135 mmol/L (136-145); UREA NITROGEN 34 mg/dL (7-18); eGFR NON AFRICAN AMERICAN 35 mL/min (90-120)
[2017-07-02 08:51] LABS: LYMPHOCYTES 21 % (15-50); MONOCYTES 7 % (2-11); NEUTROPHILS 72 % (40-80); PLATELET ESTIMATE NORMAL; POLYCHROMASIA OCC
[2017-07-02 08:57] LABS: CHOLESTEROL, TOTAL 88 mg/dL (0-200); CKMB 11.6 U/L (0.0-3.6); HDL CHOLESTEROL 44 mg/dL (32-96); LDL CHOLESTEROL 30 mg/dL (0-100); LDL-HDL RATIO 0.7 ratio (1.5-3.5); TRIGLYCERIDE 70 mg/dL (30-200)
[2017-07-02 08:58] LABS: CREATINE KINASE 1648 UL (21-215)
[2017-07-02 09:00] LABS: TROPONIN-I 1.431 ng/mL (0.000-0.060)
[2017-07-02 12:36] LABS: APPEARANCE CLEAR (CLEAR); BACTERIA FEW /hpf (NONE SEEN); BILIRUBIN NEGATIVE (NEGATIVE); COLOR DK YELLOW (YELLOW); EPITHELIAL CELLS OCC /hpf (0-5); GLUCOSE NEGATIVE (NEGATIVE); KETONE NEGATIVE (NEGATIVE); LEUKOCYTE ESTERASE TRACE (NEGATIVE); NITRITE POSITIVE (NEGATIVE); PROTEIN NEGATIVE (NEGATIVE); RED CELLS - URINE 0-5 /hpf (0-5); SPECIFIC GRAVITY 1.015 (1.005-1.020); UROBILINOGEN NORMAL (NORMAL); WHITE CELLS - URINE 0-5 /hpf (0-5)
[2017-07-02 14:09] LABS: CKMB 13.2 U/L (0.0-3.6)
[2017-07-02 14:12] LABS: CREATINE KINASE 1395 UL (21-215); TROPONIN-I 1.941 ng/mL (0.000-0.060)
[2017-07-02 16:19] LABS: BASOPHILS 0.1 % (0-2); EOSINOPHILS 0 % (0-7); IMMATURE GRANULOCYTES 1.2 % (0-5); MCH 30.5 pg (26.0-34.0); MCHC 33.5 g/dL (31.0-37.0); MEAN PLATELET VOLUME 9.8 fL (7.4-10.4); NEUTROPHILS 81.7 % (40-80); RDW 16.2 % (11.5-14.5); WBC 19.6 10x3/uL (4.8-10.8)
[2017-07-02 16:21] LABS: HEMATOCRIT 25.7 % (36.0-48.0); HEMOGLOBIN 8.6 g/dL (12-16); MCV 91.1 fL (80.0-100.0); PLATELET COUNT 165 10x3/uL (130-400); RBC 2.82 10x6/uL (4.00-5.40)
[2017-07-02 16:40] LABS: ALBUMIN 3.1 g/dL (3.4-5.0); CALCIUM 8.2 mg/dL (8.5-10.1); POTASSIUM - SERUM 4.3 mmol/L (3.5-5.1); PROTEIN - SERUM 5.7 g/dL (6.4-8.2)
[2017-07-02 16:44] LABS: ANION GAP 14.4 mmol/L (8-16); CARBON DIOXIDE 22.9 mmol/L (21.0-32.0); CREATININE - SERUM 1.1 mg/dL (0.6-1.3)
[2017-07-02 16:53] LABS: CREATINE KINASE 1493 UL (21-215)
[2017-07-02 16:56] LABS: TROPONIN-I 2.579 ng/mL (0.000-0.060)
--- NOTE | 2017-07-02 17:56 | NUR ---
SPOKE AT LENGTH WITH PT'S DAUGHTER. DAUGHTER CURRENLY EXTREMELY UPSET. CRYING UNCONTROLLABLY. STATES "THIS WASNT AN EMERGENCY FOR 9 HOURS AND NOW ALL THE SUDDEN IT IS? YOU CANT JUST KICK ME OUT! MY MOM SUFFERS FROM ICU PSYCHOSIS. SHE GOES CRAZY. SHE DRINKS ALOT. SHE IS GOING TO ACCUSE EVERYONE OF DOING INAPPROPRIATE THINGS TO HER. SHE IS ALREADY TELLING ME SHE IS IN AN EXPERIMENT". DAUGHTER IS TALKING IN CIRCLES REPEATING EVERYTHING SHE SAYS MULTIPLE TIMES. DAUGHTER INFORMED OF VISITATION HOURS AND PHONE NUMBER. DR. SANDERS AT BEDSIDE. WILL GET DAUGHTER TO SPEAK TO HIM.
--- NOTE | 2017-07-02 19:30 | NUR ---
DR GREY IN TO SEE PT, UPDATE GIVEN, SPOKE WITH PT DAUGHTER, ORDERS RECEIVED.
--- NOTE | 2017-07-02 20:10 | NUR ---
1630-RECIEVED PER FLOW SHEET-PT ALERT-VOCALIZES EASILY-ABLE TO STATE LOCATION-STATED CHEST PAIN TO R SIDE RETURNED AND BECOMING SEVERE-STATED 5/10 PRBC INFUSING FROM ER- WITH APPROX 100ML TBA-O2 AT 11 L OXIMYZER-BBB ON MONITOR WITH LOW MA-DIFFICULT TO OBTAIN CLEAR LEAD-NOTED SR-WITH PAIRED AND RUNS OF VTACH-DR BRYSON PG'D REGARDING SAME- 1644-MORPHINE 4MG TITRATED-PT STATED DECREASED TO 3-NOT GONE-NOTED BAY CATH IN PLACE-RETURN CALL FROOM DR BRYSON-STATUS REPORT GIVEN- VOICE PG'D-FOR GI CONSULT-PRBC UNIT 1 OF 2 ADDITIONAL STARTED DIRECTED BY DR BRYSON-HGB8.01/08-MARKED PALLOR NOTED-DR SANDERS PG'D REGARDING O2 REQUIREMENT AND PT DENIAL OF SOB-STATES SHE DOES NOT NEED ANY OXYGEN-NOTED LUNGS CLEAR UPPER AND LOWER-11L OXIMYZER AND O2 SAT-88%-1730-DR GREY NOTIFIED OF CONSULT-AND CURRENT STATUS- UNIT #2 PRBC OF CURRENT 2 UNIT ORDERED STARTED ICE CHIPS GIVEN -PT CONVERSES EASILY-DR COOLEY RETURNED CALL STATUS REPORT GIVEN-ORDER RECIVIED AND NOTED HEPATITIS PANEL ORDERED 1744-PROTONIX GTT STARTED ORDERED-KBRN 1814-DR SANDERS AT [facility]-SPOKE WITH FAMILY AND PT-CONVERSES EASILY 1929-U/S HAND STRAIGHTENER AT [facility]--DEDRICK
[2017-07-02 20:32] LABS: ANION GAP 15.4 mmol/L (8-16); CALCIUM 8.1 mg/dL (8.5-10.1); CARBON DIOXIDE 20.9 mmol/L (21.0-32.0); CREATININE - SERUM 0.9 mg/dL (0.6-1.3); POTASSIUM - SERUM 4.3 mmol/L (3.5-5.1)
--- NOTE | 2017-07-02 21:20 | NUR ---
PT DAUGHTER AND FRIEND IN FOR VISITATION, PT VERY AGITATED AND ATTEMPTING TO CLIMB OUT OF BED AND REMOVE VAPOTHERM, ATTEMPTS TO REORIENT ARE UNSUCCESSFUL, PT'S DAUGHTER STATES THIS IS "TYPICAL" BEHAVIOR FOR HER.
[2017-07-02 22:47] LABS: HEMATOCRIT 36.5 % (36.0-48.0); HEMOGLOBIN 12.5 g/dL (12-16); MCH 30.7 pg (26.0-34.0); MCHC 34.2 g/dL (31.0-37.0); MCV 89.7 fL (80.0-100.0); MEAN PLATELET VOLUME 10.4 fL (7.4-10.4); RBC 4.07 10x6/uL (4.00-5.40); RDW 16.6 % (11.5-14.5); WBC 21.5 10x3/uL (4.8-10.8)
--- NOTE | 2017-07-02 22:50 | NUR ---
UPON ENTERING PT ROOM VAPOTHERM OFF, PT ORIENTED TO SELF ONLY, ATTEMPTING TO KICK AND PINCH, ALL ATTEMPTS TO REORIENT ARE UNSUCCESSFUL.
[2017-07-02 22:52] LABS: APTT 31.1 SECONDS (22.8-39.4); INR 1.42 (0.85-1.17); PROTIME 17.3 SECONDS (11.6-15.0)
[2017-07-02 23:13] LABS: CKMB 14.7 U/L (0.0-3.6)
[2017-07-02 23:17] LABS: CREATINE KINASE 1348 UL (21-215); TROPONIN-I 3.652 ng/mL (0.000-0.060)
[2017-07-03] VITALS (27 sets, daily range): BP systolic 111–138; BP diastolic 69–85; Ht 162.6 cm; Wt 52.9 kg
--- NOTE | 2017-07-03 00:14 | NUR ---
DR GREY NOTIFIED OF DECREASED O2 SAT AND ABG RESULTS, ORDERS RECEIVED.
--- NOTE | 2017-07-03 00:19 | NUR ---
DR FAITH NOTIFIED REGARDING TROPONIN ELEVATION, NO FURTHER ORDERS RECEIVED AT THIS TIME.
--- NOTE | 2017-07-03 00:30 | NUR ---
ATTEMPTED TO CALL PT DAUGHTER, XIOMARA REGARDING CHANGE IN STATUS. NO ANSWER, VOICEMAIL LEFT.
--- NOTE | 2017-07-03 00:48 | NUR ---
PT INTUBATED WITH 7.5 ETT 22 @ LIP PER DR SPENCE, COLOR CHANGE NOTED, STAT CXR ORDERED. VENT SETTINGS PER DR GREY A/C 16/550/100% PEEP OF 8. PT TOLERATED WELL WITH NO SIGNIFICANT CHANGE TO VS.
--- NOTE | 2017-07-03 02:28 | NUR ---
PT DAUGHTER RETURNED CALL, UPDATED REGARDING HER MOTHER'S CONDITION, ALL QUESTIONS ANSWERED.
--- NOTE | 2017-07-03 03:45 | NUR ---
REASSESSMENT PER FLOWSHEET, PT POSITIONED FOR COMFORT, ORAL CARE PROVIDED, CONT TO MONITOR.
[2017-07-03 05:49] LABS: BASOPHILS 0.1 % (0-2); EOSINOPHILS 0 % (0-7); HEMATOCRIT 38.5 % (36.0-48.0); HEMOGLOBIN 13.1 g/dL (12-16); IMMATURE GRANULOCYTES 0.8 % (0-5); LYMPHOCYTES 9.4 % (15-50); MCH 30.5 pg (26.0-34.0); MCV 89.7 fL (80.0-100.0); MEAN PLATELET VOLUME 10.9 fL (7.4-10.4); MONOCYTES 4.4 % (2-11); NEUTROPHILS 85.3 % (40-80); PLATELET COUNT 165 10x3/uL (130-400); RBC 4.29 10x6/uL (4.00-5.40); RDW 17.5 % (11.5-14.5); WBC 23.3 10x3/uL (4.8-10.8)
[2017-07-03 06:02] LABS: INR 1.62 (0.85-1.17); PROTIME 19.2 SECONDS (11.6-15.0)
[2017-07-03 06:16] LABS: ALBUMIN 2.8 g/dL (3.4-5.0); ANION GAP 13.5 mmol/L (8-16); BILIRUBIN - TOTAL 0.7 mg/dL (0.2-1.3); CARBON DIOXIDE 23.4 mmol/L (21.0-32.0); CREATININE - SERUM 0.9 mg/dL (0.6-1.3); POTASSIUM - SERUM 3.9 mmol/L (3.5-5.1); PROTEIN - SERUM 5.7 g/dL (6.4-8.2)
--- NOTE | 2017-07-03 06:20 | NUR ---
AM LAB RESULTS REVIEWED, HEPARIN GTT PAUSED AT THIS TIME PER PROTOCOL, NEW INFUSION RATE 1000 UNITS/HR PER SLIDING SCALE.
[2017-07-03 06:39] LABS: APTT > 200.0 SECONDS (22.8-39.4)
--- NOTE | 2017-07-03 08:48 | NUR ---
DR. FATIH IN TO SEE PATIENT.
--- NOTE | 2017-07-03 08:49 | NUR ---
NOTIFIED DR. FAITH ON WAITING FOR XRAY PRIOR TO COREG TO CHECK OGT PLACEMENT. DR. FAITH AGREED WITH THAT.
--- NOTE | 2017-07-03 10:10 | NUR ---
COMMERCIAL CORRESPONDENT BUBBA HERE IN TO SEE PATIENT. PATIENT IS RESTING WELL WITH DIPRIVAN SEDATION. AROUSES TO PAINFUL STIMULI AND MENESES. SPO2 98%. BED IN LOW POSITION.
--- NOTE | 2017-07-03 12:00 | NUR ---
NO CHANGES IN PATIENT CONDITION AT THIS TIME. BED IN LOW POSITION. FAMILY AT BEDSIDE.
--- NOTE | 2017-07-03 14:20 | NUR ---
BED BATH GIVEN LINENS COMPLETE LINEN CHANGE COMPLETE. PATIENT REPOSITIONED FOR SKIN CARE AND COMFORT. BAY CARE COMPLETE, AND BED IN LOW POSITION.
--- NOTE | 2017-07-03 16:10 | NUR ---
DR. SOMMER HERE FOR CONSULT ON PATIENT FOR TRIPLE LUMEN CATH PLACEMENT. TRIPLE LUMEN PLACED BY DR. SOMMER. XRAY ORDERED TO CHECK PLACEMENT.
--- NOTE | 2017-07-03 18:00 | NUR ---
DAUGHTER AT BEDSIDE INQUIRING ABOUT PATIENT. EXPLAINED PATIENT'S CONDITION TO HERE, SHE VERBALIZED UNDERSTANDING, AND WAS VERY APPRECIATIVE.
--- NOTE | 2017-07-03 19:50 | NUR ---
RESUMED CARE OF PT, ASSESSMENT PER FLOWSHEET. PT SEDATED ON VENT, AROUSES TO PAINFUL STIMULI, WITHDRAWS FROM PAIN, PPP, HR SR ON CM, COARSE BREATH SOUNDS WITH DIM BASES BILAT, BAY CATH PATENT WITH JOHN URINE IN TUBING, OGT TO LIWS-PLACEMENT VERIFIED WITH AUSCULTATION OF SMALL AIR BOLUS, SMALL AMT OF LIGHT RAMOS LIQUID IN TUBING, ORAL CARE PROVIDED-PT COUGHS TO SUCTIONING, WILL MONITOR.
--- NOTE | 2017-07-03 21:10 | NUR ---
NO VISITORS PRESENT AT THIS TIME, ORAL CARE AND SUCTIONING PROVIDED, POSITIONED FOR COMFORT, CONT POC.
--- NOTE | 2017-07-03 23:30 | NUR ---
REASSESSMENT PER FLOWSHEET, NO ACUTE CHANGES NOTED. ORAL CARE AND SUCTIONING PROVIDED, REPOSITIONED SUPPORTED WITH PILLOWS.
[2017-07-04] VITALS (30 sets, daily range): BP systolic 78–129; BP diastolic 51–85
--- NOTE | 2017-07-04 01:10 | NUR ---
CVP SET UP PER MD ORDER, READING 6-7. ORAL CARE PROVIDED, PT POSITIONED FOR COMFORT SUPPORTED WITH PILLOWS, VSS.
--- NOTE | 2017-07-04 04:01 | NUR ---
AM CXR DONE, ORAL CARE AND SUCTIONING PROVIDED, POSITIONED FOR COMFORT SUPPORTED WITH PILLOWS, CONT POC.
[2017-07-04 04:06] LABS: BASOPHILS 0.1 % (0-2); EOSINOPHILS 0.3 % (0-7); HEMATOCRIT 35.3 % (36.0-48.0); IMMATURE GRANULOCYTES 0.8 % (0-5); LYMPHOCYTES 15.7 % (15-50); MCH 30.2 pg (26.0-34.0); MCV 88.7 fL (80.0-100.0); MONOCYTES 6.2 % (2-11); NEUTROPHILS 76.9 % (40-80); PLATELET COUNT 197 10x3/uL (130-400); RBC 3.98 10x6/uL (4.00-5.40); RDW 17.6 % (11.5-14.5); WBC 17.9 10x3/uL (4.8-10.8)
[2017-07-04 04:17] LABS: INR 1.29 (0.85-1.17)
[2017-07-04 04:32] LABS: ALBUMIN 2.2 g/dL (3.4-5.0); BILIRUBIN - TOTAL 0.9 mg/dL (0.2-1.3); CALCIUM 7.4 mg/dL (8.5-10.1); CARBON DIOXIDE 26.8 mmol/L (21.0-32.0); CREATININE - SERUM 0.8 mg/dL (0.6-1.3); MAGNESIUM - SERUM 1.3 mg/dL (1.8-2.4); PHOSPHOROUS 1.6 mg/dL (2.5-4.9)
[2017-07-04 04:38] LABS: ANION GAP 8.8 mmol/L (8-16); POTASSIUM - SERUM 2.6 mmol/L (3.5-5.1); TROPONIN-I 1.934 ng/mL (0.000-0.060)
--- NOTE | 2017-07-04 04:53 | NUR ---
ABG RESULTS AND POTASSIUM LEVEL OF 2.6 ON AM LAB REVIEWED WITH DR GREY, ORDERS RECEIEVED.
--- NOTE | 2017-07-04 06:16 | NUR ---
NO VISITORS PRESENT AT THIS TIME, PT POSITIONED FOR COMFORT, VSS.
--- NOTE | 2017-07-04 07:30 | NUR ---
SHIFT ASSESSMENT COMPLETE. PATIENT IS STABLE CONDITION, V/S WITHIN NORMAL LIMITS. TRIPLE LUMEN CATH INTACT AND PATENT. SALINE NOTED IN R AC WITHOUT REDNESS OR EDEMA NOTED.
--- NOTE | 2017-07-04 08:25 | NUR ---
DR. FAITH HERE IN TO SEE PATIENT. CONFIRMED DOBUTAMINE AT 5MCG/KG/MIN AND TO CONTINUE AT THIS RATE.
--- NOTE | 2017-07-04 08:30 | NUR ---
NO CHANGE IN HEPARIN RATE. PTT 85.9 WILL REDRAW IN AM PER PROTOCOL.
--- NOTE | 2017-07-04 10:44 | NUR ---
DR. CATHERINE HERE IN TO SEE PATIENT.
--- NOTE | 2017-07-04 11:29 | NUR ---
DR. CATHERINE CALLED AND CONFIRMED TUBE PLACEMENT AFTER REVIEWING THE XRAY FROM THIS AM.
--- NOTE | 2017-07-04 12:17 | NUR ---
DR. JONHSTON SPOKE WITH PATIENT FATHER AND IN TO SEE PATIENT.
--- NOTE | 2017-07-04 14:32 | NUR ---
DR. SANDERS HERE IN TO SEE PATIENT AND SPEAKING WITH FAMILY.
--- NOTE | 2017-07-04 15:10 | NUR ---
REPOSITIONED PATIENT TO RIGHT SIDE. NO CHANGES IN CONDITION. BED IN LOW POSITION.
--- NOTE | 2017-07-04 15:20 | NUR ---
INCREASED DIPRIVAN TO 35MCG/KG/MIN DUE TO RESTLESSNESS OF PATIENT. PATIENT IS MOVING UPPER AND LOWER EXTREMITIES ABOUT IN BED.
--- NOTE | 2017-07-04 17:45 | NUR ---
ECREASED DIPRIVAN TO 30MCG/MIN DUE TO PATIENTS BP DECREASING TO 70/50 (57). WILL CONTINUE TO MONITOR BP
--- NOTE | 2017-07-04 18:00 | NUR ---
DIPROVAN STOPPED COMPLETELY AT THIS TIME. PATIENT IS LESS RESPONSIVE THAN PREVIOUSLY EXTREMITIES ARE FLACCID EXCEPT FEET WHICH TENSED AT THIS TIME. PERRL 3/3 SLUGGISH.
--- NOTE | 2017-07-04 18:06 | NUR ---
RESTARTED DIPRIVAN AT 5MCG/KG/MIN AND WILL CONTINUE TO MONITOR FOR AROUSAL BY PATIENT. BP IS INCREASING AND WILL CONTINUE TO MONITOR.
--- NOTE | 2017-07-04 18:38 | NUR ---
DR. GREY PAGED DUE TO PATIENT BP DECREASING AND PATIENT BEING LESS RESPONSIVE.
--- NOTE | 2017-07-04 18:49 | NUR ---
PATIENT AROUSES EASILY TO VERBAL STIMULI AND FOLLOWS COMMANDS. PATIENT IS ABLE TO SQUEEZE UPPER EXTREMITIES AND IS MOVING LOWER EXTREMITIES WELL.
--- NOTE | 2017-07-04 18:51 | NUR ---
DIPRIVAN INCREASED TO 20MCG/KG/MIN FOR SEDATIONL. PATIENT IS OPENING EYES AND COUGHING AGAINST THE VENT.
--- NOTE | 2017-07-04 19:02 | NUR ---
INCREASED DIPRIVAN TO 25MCG/KG/MIN PATIENT IS TRYING TO SIT UP IN BED.
--- NOTE | 2017-07-04 19:10 | NUR ---
Received patient laying in bed sedated on vent, assessment completed per flowsheet. Patient opens eyes to deep stimuli and withdraws from pain stimuli. Eyes PERRLA @ 4mm with brisk response, sclera is white. ETT 7.5 @ 22cm secured, OGT with Pulmocare @ 10ml/hr infusing. S1/S2 noted NSR with occaisional PVC, possible bundle branch block, and ST depression with HR 80. Lung sounds clear bilateral upper and mid with diminished lower, Vent settings A/C R-12 V-500 40% P-5 with O2 sat 98%. Abdomen is soft and flat with bowel sounds active x4, non-tender. L groin incision site dressing CDI, soft to palpation with no bleeding/drainage noted. Passive ROM all extremities with weakness noted, all pulses palpable with cap refill < 3 sec. Yanez secured in place with concentrated yellow urine noted. L subclavian CVL noted with Propofol @ 30mcg/kg / Heparin @ 900 units/hr / Dobutamine @ 5mcg/kg / NS @ 10ml/hr infusing. Unable to assess pain at this time, oral care/suctioning provided. Patient repositioned for comfort, no further needs at this time. All VSS and will continue to monitor.
--- NOTE | 2017-07-04 19:14 | NUR ---
DR. GREY CALLED AND NEW ORDERS RECEIVED.
--- NOTE | 2017-07-04 20:45 | NUR ---
Patient potassium low on earlier test results, will redraw and treat according to protocol.
--- NOTE | 2017-07-04 23:10 | NUR ---
Reassessment completed per flowsheet, patient laying in bed sedated on vent. ETT/OGT secured, Pulmocare @ 20ml/hr infusing. Patient sedated, responds to deep stimuli and withdraws from pain stimuli. S1/S2 noted NSR with rare PVC, possible bundle branch block and HR 80. Vent settings unchanged from previous assessment with O2 sat 96%, Lung sounds clear bilateral upper and mid with diminished lower. L groin incision dressing CDI, site soft to palpation with no bleeding/drainage noted. All pulses palpable with cap refill < 3 sec, skin warm/dry to touch. Oral care/suctioning provided, patient repositioned for comfort. No further needs at this time, all VSS and will continue to monitor.
[2017-07-05] VITALS (26 sets, daily range): BP systolic 87–122; BP diastolic 51–72
--- NOTE | 2017-07-05 01:00 | NUR ---
Patient laying in bed sedated on vent, oral care/suctioning provided. L groin incision site dressing CDI, soft to palpation with no bleeding/drainage noted. Patient repositioned for comfort, no further needs at this time and will continue to monitor.
--- NOTE | 2017-07-05 03:05 | NUR ---
Reassessment compeleted per flowsheet, patient laying in bed sedated on vent. Patient responds to deep stimuli and withdraws from pain stimuli. Eyes PERRLA @ 4mm with brisk response, sclera ia white. S1/S2 noted NSR with possible bundle branch block on telemetry and HR 75. Vent settings unchanged from previous assessment, lung sounds clear bilateral upper and mid with diminished lower and O2 sat 96%. R groin incision site dressing CDI, soft to palpation with no bleeding/drainage noted. All pulses palpable with cap refill < 3 sec, skin warm/dry to touch. Oral care/suctioning provided, patient repositioned for comfort. No further needs at this time, all VSS and will continue to monitor.
[2017-07-05 04:37] LABS: BASOPHILS 0.1 % (0-2); EOSINOPHILS 1.3 % (0-7); HEMATOCRIT 33.6 % (36.0-48.0); HEMOGLOBIN 11.3 g/dL (12-16); IMMATURE GRANULOCYTES 1.1 % (0-5); MCH 30.1 pg (26.0-34.0); MCHC 33.6 g/dL (31.0-37.0); MCV 89.6 fL (80.0-100.0); MEAN PLATELET VOLUME 10.2 fL (7.4-10.4); NEUTROPHILS 71.5 % (40-80); PLATELET COUNT 211 10x3/uL (130-400); RBC 3.75 10x6/uL (4.00-5.40); RDW 17.8 % (11.5-14.5)
[2017-07-05 04:39] LABS: WBC 13.4 10x3/uL (4.8-10.8)
[2017-07-05 04:50] LABS: ALBUMIN 2.1 g/dL (3.4-5.0); ALKALINE PHOSPHATASE 47 U/L (46-116); ALT (SGPT) 666 U/L (10-68); CALC OSMOLALITY 277 mosm/kg (275-300); CALCIUM 7.1 mg/dL (8.5-10.1); CARBON DIOXIDE 25.1 mmol/L (21.0-32.0); CHLORIDE - SERUM 104 mmol/L (98-107); CREATININE - SERUM 0.7 mg/dL (0.6-1.3); GLUCOSE 98 mg/dL (74-106); PROTEIN - SERUM 5.1 g/dL (6.4-8.2); SODIUM 138 mmol/L (136-145); UREA NITROGEN 17 mg/dL (7-18); eGFR NON AFRICAN AMERICAN 85 mL/min (90-120)
[2017-07-05 04:51] LABS: PHOSPHOROUS 2.7 mg/dL (2.5-4.9); POTASSIUM - SERUM 3.5 mmol/L (3.5-5.1)
--- NOTE | 2017-07-05 05:00 | NUR ---
AM labs collected without difficulty, patient laying in bed sedated on vent. Oral care/suctioning provided, patient repositioned for comfort. No further needs at this time, all VSS and will continue to monitor.
[2017-07-05 06:18] LABS: INR 1.21 (0.85-1.17); PROTIME 15.2 SECONDS (11.6-15.0)
--- NOTE | 2017-07-05 07:30 | NUR ---
SHIFT ASSESSMENT COMPLETE PATIENT IS IN STABLE CONDITION.
--- NOTE | 2017-07-05 08:36 | NUR ---
TIFFANY HELD THIS AM PER MD ORDER FOR CVP <12. CVP THIS AM IS 5-6
[2017-07-05 10:11] LABS: ANA REFLEX - DIRECT Negative (Negative)
--- NOTE | 2017-07-05 10:55 | NUR ---
Nutrition Follow Up: Pt continues sedated on vent. Pt is tolerating current TF regimen of Pulmocare @ 20 ml/hr with H2O flushes of 10 ml every 4 hours. No BM since admit. Wt gain noted. Labs reviewed. Meds noted including Thiamine, Folic Acid, Lasix, Diprivan @ 13.4 ml/hr providing 354 kcal/d. Will put order in to advance TF as tolerated to goal rate of 35 ml/hr. Water flushes of 25 ml/hr. (Other kcal source - Diprivan). Will increase goal rate as Diprivan decreases. RD following.
--- NOTE | 2017-07-05 11:10 | NUR ---
INCREASED FEEDING TO 30ML/HR. O RESIDUAL AT THIS TIME. INCREASED FLUSH ORDER PER ORDER. WILL CONTINUE TO MONITOR.
--- NOTE | 2017-07-05 14:12 | NUR ---
DR. DUBOSE HERE IN TO SEE PATIENT. HE MADE VENT CHANGES TO SIMV, TV INCREASED TO 600. WILL CONTINUE TO MONITOR AFTER CHANGES.
[2017-07-05 14:15] LABS: ACLA - IGG AB <9 GPL U/mL (0-14); ACLA - IGM AB 10 MPL U/mL (0-12); HAPTOGLOBIN 121 mg/dL (34-200)
--- NOTE | 2017-07-05 14:32 | NUR ---
DR. SANDERS HERE IN TO SEE PATIENT.
--- NOTE | 2017-07-05 16:42 | NUR ---
COREG GIVEN VIA OGT WITH FLUSH. BP 122/73. CM IS SR BBB WITH ST DEPRESSION AT 76. WILL CONTINUE TO MONITOR.
--- NOTE | 2017-07-05 18:15 | NUR ---
PATIENT IS RESTLESS MOVE ALL EXTREMITIES ABOUT IN BED. DAUGHTER AT BEDSIDE AND UPDATED ON PATIENT CONDITION. FELT THAT PATIENT WAS RESTLESS DUE TO AROUSAL OF STIMULI WILL MONITOR TO SEE IF SHE SETTLES DOWN PRIOR TO INCREASING DIPRIVAN.
--- NOTE | 2017-07-05 19:10 | NUR ---
Received patient sedated in bed on vent, assessment completed per flowsheet. Patient responds to deep stimuli and withdraws from pain stimuli. Eyes PERRLA @ 4mm with brisk response, sclera is white. ETT 7.5 @ 23cm, OGT with pulmocare @ 30ml/hr. S1/S2 noted NSR on telemetry with possible bundle branch block with ST depression and HR 72. Lung sounds clear bilateral upper and mid with diminished lower, Vent settings SIMV R-12 V-600 40% P-5 PS-10 with O2 sat 96%. Abdomen is round and soft with bowel sounds active x4, non-tender. R groin incision site Dressing CDI, soft to palpation with no bleeding/drainage noted. Yanez secured in place with concentrated slight jw urine noted. Passive ROM all extremities with weakness noted, all pulses palpable with cap refill < 3 sec. Unable to assess pain at this time. Oral care/suctioning provided, patient repositioned for comfort and full linen change performed. no further needs at this time, all VSS and will continue to monitor.
[2017-07-05 20:14] LABS: ALBUMIN 2.1 g/dL (3.4-5.0); ALKALINE PHOSPHATASE 61 U/L (46-116); ALT (SGPT) 546 U/L (10-68); CALC OSMOLALITY 273 mosm/kg (275-300); CALCIUM 7.8 mg/dL (8.5-10.1); CARBON DIOXIDE 25.7 mmol/L (21.0-32.0); CHLORIDE - SERUM 105 mmol/L (98-107); CREATININE - SERUM 0.6 mg/dL (0.6-1.3); GLUCOSE 123 mg/dL (74-106); POTASSIUM - SERUM 3.4 mmol/L (3.5-5.1); PROTEIN - SERUM 5.2 g/dL (6.4-8.2); SODIUM 136 mmol/L (136-145); UREA NITROGEN 15 mg/dL (7-18); eGFR NON AFRICAN AMERICAN > 90 mL/min (90-120)
--- NOTE | 2017-07-05 21:00 | NUR ---
No visitors at this time, patient sedated on vent. Oral care/suctioning provided, patient repositioned for comfort. No further needs at this time, all VSS and will continue to monitor.
--- NOTE | 2017-07-05 23:10 | NUR ---
Reassessment completed per flowsheet, patient laying in bed sedated on vent. Patient sedated and withdraws from pain stimuli. Eyes PERRLA @ 4mm with brisk response, sclera is white. S1/S2 noted NSR with possible bundle branch black with ST depression and HR 75. ETT/OGT secured, Pulmocare infusing at 35ml/hr. Vent settings unchanged from previous, lung sounds clear bilateral upper and mid with diminished lower and O2 sat 99%. All pulses palpable with cap refill < 3 sec, skin warm/dry to touch. Oral care/suctioinng provided, patient repositioned for comfort. No further needs at this time, all VSS and will continue to monitor.
[2017-07-06] VITALS (25 sets, daily range): BP systolic 104–135; BP diastolic 57–75
--- NOTE | 2017-07-06 01:00 | NUR ---
Patient laying in bed sedated on vent, settings unchanged from previous assessment with O2 sat 99%. Oral care/suctioning provided, repositioned for comfort. All VSS and will continue to monitor.
--- NOTE | 2017-07-06 03:10 | NUR ---
Reassessment completed per flowsheet, patient laying in bed sedated on vent. Patient opens eyes and withdraws from deep stimuli. Eyes PERRLA @ 4mm with brisk response, sclera is white. S1/S2 noted NSR with possible BBB with ST depression and HR 72. Vent settings remain unchanged from previous assessment, lung sounds clear bilateral upper and mid with diminished lower. R groin incision dressing CDI, tender to palpation with no bleeding/drainage noted. All pulses palpable with cap refill < 3 sec, skin is warm/dry to touch. Oral care/suctioning provided, patient repositioned for comfort. No further needs at this time, all VSS and will continue to monitor.
[2017-07-06 04:12] LABS: HEPATITIS C ANTIBODY 0.1 (0.0-0.9)
--- NOTE | 2017-07-06 05:00 | NUR ---
AM Labs collected without difficulty, will adjust Heparin based on results. Full bed bath/linen shange performed, patient tolerated well. Oral care/suctioning provided, patient repositioned for comfort. All VSS and will continue to monitor.
[2017-07-06 06:02] LABS: BASOPHILS 0.2 % (0-2); EOSINOPHILS 4.5 % (0-7); HEMATOCRIT 34.1 % (36.0-48.0); HEMOGLOBIN 11.4 g/dL (12-16); IMMATURE GRANULOCYTES 1.6 % (0-5); LYMPHOCYTES 15.8 % (15-50); MCH 30.3 pg (26.0-34.0); MCHC 33.4 g/dL (31.0-37.0); MCV 90.7 fL (80.0-100.0); MEAN PLATELET VOLUME 10.2 fL (7.4-10.4); MONOCYTES 11.7 % (2-11); NEUTROPHILS 66.2 % (40-80); PLATELET COUNT 236 10x3/uL (130-400); RBC 3.76 10x6/uL (4.00-5.40); RDW 17.9 % (11.5-14.5); WBC 11.5 10x3/uL (4.8-10.8)
[2017-07-06 06:15] LABS: ALBUMIN 2.1 g/dL (3.4-5.0); ALKALINE PHOSPHATASE 70 U/L (46-116); ALT (SGPT) 471 U/L (10-68); CALC OSMOLALITY 278 mosm/kg (275-300); CALCIUM 7.8 mg/dL (8.5-10.1); CARBON DIOXIDE 26.6 mmol/L (21.0-32.0); CHLORIDE - SERUM 107 mmol/L (98-107); CREATININE - SERUM 0.6 mg/dL (0.6-1.3); GLUCOSE 106 mg/dL (74-106); POTASSIUM - SERUM 3.5 mmol/L (3.5-5.1); PROTEIN - SERUM 5.4 g/dL (6.4-8.2); SODIUM 140 mmol/L (136-145); UREA NITROGEN 13 mg/dL (7-18); eGFR NON AFRICAN AMERICAN > 90 mL/min (90-120)
--- NOTE | 2017-07-06 07:00 | NUR ---
ASSESSMENT COMPLETE PER FLOW SHEET. SEDATED ON VENT, RESTING QUIETLY. VITAL SIGNS STABLE.
[2017-07-06 07:21] LABS: INR 1.05 (0.85-1.17); PROTIME 13.5 SECONDS (11.6-15.0)
[2017-07-06 07:22] LABS: APTT 81.1 SECONDS (22.8-39.4)
--- NOTE | 2017-07-06 09:05 | NUR ---
DR. BRYSON AT BEDSIDE SPEAKING WITH FAMILY. NEW ORDERS REC'D.
--- NOTE | 2017-07-06 09:26 | NUR ---
NUTRITION F/U CHART REVIEWED. PT REMAINS ON VENT. PULMOCARE CURRENTLY AT 30 CC/HR WITH GOAL RATE 35 CC/HR. DIPRIVAN RATE DECREASED. RD FOLLOWING
--- NOTE | 2017-07-06 09:30 | NUR ---
SEDATION CUT IN HALF AND VENT SETTINGS CHANGED FROM RATE OF 12 TO 6. O2 SAT 99%.
--- NOTE | 2017-07-06 10:15 | NUR ---
VENT SETTINGS CHANGED FROM RATE OF 6 TO RATE OF 4.
[2017-07-06 12:15] LABS: MITOCHONDRIAL ANTIBODY 4.9 Units (0.0-20.0); SMOOTH MUSCLE ABS (ACTIN) 8 Units (0-19)
--- NOTE | 2017-07-06 12:30 | NUR ---
DR. BRYSON AT BEDSIDE SPEAKING WITH FAMILY. NO NEW ORDERS REC'D.
--- NOTE | 2017-07-06 14:00 | NUR ---
PLACED BACK ON SIMV WITH RATE OF 12. SEDATION RESTARTED PER ORDERS.
--- NOTE | 2017-07-06 15:00 | NUR ---
REASSESSMENT COMPLETE PER FLOW SHEET.. NO CHANGES NOTED.
--- NOTE | 2017-07-06 15:11 | NUR ---
Attempted to assess DC plans/needs - Patient sedated, on vent. No family present.
--- NOTE | 2017-07-06 18:00 | NUR ---
FAMILY AT BEDSIDE, UPDATE GIVEN AND QUESTIONS ANSWERED. VITAL SIGNS STABLE. WILL CONTINUE TO MONITOR.
--- NOTE | 2017-07-06 19:30 | NUR ---
REPORT RECIEVED. ASSESSMENT COMPELTE PER FLOW SHEET. VSS. ORAL ENDOTRACH CARE ADM. WILL CONTINUE TO MONITOR
--- NOTE | 2017-07-06 23:14 | NUR ---
REASSESSMENT COMPLETEP ER FLOW SHEET. VSS. NO NEW CHANGES. WILL CONTINUE TO MONITOR
[2017-07-07] VITALS (25 sets, daily range): BP systolic 103–137; BP diastolic 55–557
--- NOTE | 2017-07-07 01:00 | NUR ---
COMPLETE BB LINEN CHANGE ADM. VSS. NO NEW CHANGES. WILL CONTINUE TO MONITOR
--- NOTE | 2017-07-07 03:30 | NUR ---
REASSESSMENT COMPLETE PER FLOW SHEET. VSS. NO NEW CHANGES. WILL CONTINUE TO MONITOR
[2017-07-07 06:26] LABS: BASOPHILS 0.2 % (0-2); HEMATOCRIT 33.1 % (36.0-48.0); HEMOGLOBIN 10.9 g/dL (12-16); IMMATURE GRANULOCYTES 1.4 % (0-5); LYMPHOCYTES 14.9 % (15-50); MCH 30.2 pg (26.0-34.0); MCHC 32.9 g/dL (31.0-37.0); MCV 91.7 fL (80.0-100.0); MEAN PLATELET VOLUME 10.2 fL (7.4-10.4); MONOCYTES 15.4 % (2-11); NEUTROPHILS 64.1 % (40-80); PLATELET COUNT 243 10x3/uL (130-400); RBC 3.61 10x6/uL (4.00-5.40); RDW 17.7 % (11.5-14.5); WBC 10.4 10x3/uL (4.8-10.8)
[2017-07-07 06:46] LABS: ALBUMIN 1.9 g/dL (3.4-5.0); ALKALINE PHOSPHATASE 93 U/L (46-116); CALC OSMOLALITY 276 mosm/kg (275-300); CARBON DIOXIDE 25.4 mmol/L (21.0-32.0); CHLORIDE - SERUM 107 mmol/L (98-107); CREATININE - SERUM 0.6 mg/dL (0.6-1.3); GLUCOSE 110 mg/dL (74-106); POTASSIUM - SERUM 3.6 mmol/L (3.5-5.1); SODIUM 138 mmol/L (136-145); UREA NITROGEN 13 mg/dL (7-18); eGFR NON AFRICAN AMERICAN > 90 mL/min (90-120)
[2017-07-07 06:47] LABS: ALT (SGPT) 313 U/L (10-68)
--- NOTE | 2017-07-07 07:00 | NUR ---
REC'D REPORT AND RESUMED CARE, ETT TO VENTILATION AND SECURED, IN SIMV MODE WITH 35%FIO2, OGT WITH PULMOCARE AT 35CC/HR, RESIDUAL CHECK 10 CC, LT SC WITH DOBUTAMIN AT 5MG/HR, HEPARIN GTT AT 900 UNITS, RIGHT NECK DRESSING CDI, BAY TO GRAVITY WITH DARK DRAINAGE TO BAG, ASSESSMENT COMPLETED PER FLOWSHEET, REPOSITIONED TO LEFT SIDE WITH PILLOW PROPPED TO BACK AND HEELS FLOATED
--- NOTE | 2017-07-07 08:30 | NUR ---
CPAP MODE ON VENT INITIATED BY RT
--- NOTE | 2017-07-07 09:00 | NUR ---
VENT ALARMING, 5 SECOND PERIOD OF APNEA NOTED, AROUSED WITHOUT DIFFICULTY
--- NOTE | 2017-07-07 09:15 | NUR ---
CONTINUES ON CPAP, VSS, AWAKE, FOLLOWING COMMAMDS, TOLERATING WITHOUT DIFFICULTY, FAMILY AT BEDSIDE, NO NEEDS AT THIS TIME
--- NOTE | 2017-07-07 11:01 | NUR ---
* Is the patient Alert and Oriented? Yes 0 * How many steps to enter\exit or inside your home? 0 0 * PCP Dr. Sanders 0 * Pharmacy [facility] 0 * Preadmission Environment Home Alone 0 * ADLs Independent 0 * List name and contact numbers for known caregivers / representatives who currently or will assist patient after discharge: Daughter/POA Huan Fay [phone] Daughter/POA Huan Eckert [phone] 0 * Additional services required to return to the preadmission environment? Yes 0 * Can the patient safely return to the preadmission environment? Yes 0 * Has this patient been hospitalized within the prior 30 days at any hospital? No Patient Name: HAYDEE KIRBY Admission Status: ER Accout number: [id number] Admission Date: 07-02-2017 : 1935 Admission Diagnosis:ANEMIA, UNSPECIFIED Attending: RENEA SANDERS Current LOS: 5 Anticipated DC Date: 07-12-2017 Planned Disposition: Inpatient Rehab Facility Primary Insurance: MEDICARE A & B Discharge Planning Comments: Patient on vent, less sedated. Kesha Hugo & Sofia, at bedside. They have joint POA. 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 She did not use any assistive devices or have home health services. They inquired about inpatient rehab at discharge. The request referral to [facility] should she need additional therapy. CM will follow & assist as needed. Supervisor Electronics Testing: Makayla Vicente
--- NOTE | 2017-07-07 12:00 | NUR ---
FAMILY AT BEDSIDE, STATUS UPDATED, DR. BURNS TO ROOM, DISCUSSED POSSIBLE EXTUBATION, PATIENT CURRENTLY ON CPAP, AWAKE AND FOLLOWING COMMANDS, WILL HAVE RT TO DO NIF AND VC TO SEE WHERE WE ARE WITH REMOVING ETT.
--- NOTE | 2017-07-07 13:00 | NUR ---
VANC 750 MG IVPB INITIATED PER MAR FLOWSHEET
--- NOTE | 2017-07-07 13:00 | NUR ---
NIF AND VC COMPLETED
--- NOTE | 2017-07-07 17:27 | NUR ---
CALLED TO ROOM, PULLING ON CATHETER, WANTS CATHETER OUT, STATES VERY UNCOMFORTABLE, CHECKED CATH INSERTION SITE, APPEARS FINE, NO EDEMA OR REDNESS NOTED, DRAINING WELL
--- NOTE | 2017-07-07 18:00 | NUR ---
FAMILY AT BEDSIDE, PATIENT CONFUSED, DAUGHTER STATES SHE TAKES AMBEIN NIGHTLY AND HAS BECOME DEPENDENT, WOULD LIKE HER TO HAVE SOMETHING TO HELP HER SLEEP
--- NOTE | 2017-07-07 18:10 | NUR ---
NOTIFIED DAUGHTERS OF SCHEDULED AMBIEN PER MAR FLOWSHEET, NO OTHER NEEDS AT THIS TIME,
--- NOTE | 2017-07-07 19:09 | NUR ---
REPORT RECIEVED. ASSESSMENT COMPLETE PER FLOW SHEET. REPOSITIONED UP IN BED DENIES PAIN OR NEEDS. WILL CONTINUE TO MONITOR
--- NOTE | 2017-07-07 21:16 | NUR ---
2100 MEDS ADM WITHOUT DIFFICULTY. VSS. WILL CONTINUE TO MONITOR
--- NOTE | 2017-07-07 23:15 | NUR ---
ORAL CARE DONE
[2017-07-08] VITALS (43 sets, daily range): BP systolic 92–141; BP diastolic 49–76
--- NOTE | 2017-07-08 01:00 | NUR ---
PT CONFUSED REORIENTED ATTEMPT TO GET OOB ASSISTED BACK UP IN BED REPOSITIOEND ON R SIDE. WILLCONTINUE TO MONITOR
--- NOTE | 2017-07-08 03:30 | NUR ---
REASSESSMENT COMPLETE PER FLOW SHEET. VSS. NO NEW CHANGES. WILL CONTINUE TO MONITOR
--- NOTE | 2017-07-08 05:00 | NUR ---
PT INCREASINGLY CONFUSED REORIENTED. ASSISTED BACK TO BED. VSS WILL CONTINUE TO MONITOR
[2017-07-08 06:40] LABS: BASOPHILS 0.4 % (0-2); EOSINOPHILS 4.7 % (0-7); HEMATOCRIT 35.2 % (36.0-48.0); HEMOGLOBIN 11.5 g/dL (12-16); IMMATURE GRANULOCYTES 1.2 % (0-5); LYMPHOCYTES 14.2 % (15-50); MCH 30.3 pg (26.0-34.0); MCHC 32.7 g/dL (31.0-37.0); MCV 92.9 fL (80.0-100.0); MEAN PLATELET VOLUME 9.9 fL (7.4-10.4); MONOCYTES 14.6 % (2-11); NEUTROPHILS 64.9 % (40-80); PLATELET COUNT 267 10x3/uL (130-400); RBC 3.79 10x6/uL (4.00-5.40); RDW 17.6 % (11.5-14.5); WBC 11.2 10x3/uL (4.8-10.8)
[2017-07-08 07:00] LABS: ALBUMIN 2.3 g/dL (3.4-5.0); ALKALINE PHOSPHATASE 95 U/L (46-116); ALT (SGPT) 264 U/L (10-68); CALC OSMOLALITY 278 mosm/kg (275-300); CALCIUM 9.1 mg/dL (8.5-10.1); CARBON DIOXIDE 26.4 mmol/L (21.0-32.0); CHLORIDE - SERUM 106 mmol/L (98-107); CREATININE - SERUM 0.6 mg/dL (0.6-1.3); GLUCOSE 108 mg/dL (74-106); MAGNESIUM - SERUM 1.7 mg/dL (1.8-2.4); POTASSIUM - SERUM 3.3 mmol/L (3.5-5.1); PROTEIN - SERUM 5.7 g/dL (6.4-8.2); SODIUM 140 mmol/L (136-145); UREA NITROGEN 11 mg/dL (7-18); eGFR NON AFRICAN AMERICAN > 90 mL/min (90-120)
--- NOTE | 2017-07-08 07:30 | NUR ---
REPORT RECEIVED. ASSUMED CARE OF PATIENT. SHIFT ASSESSMENT COMPLETE. PT AWAKENS EASILY, BUT DROWSY. FOLLOWS COMMANDS. CONFUSED. BED LOW. SIDE RAILS X2
--- NOTE | 2017-07-08 10:05 | NUR ---
DAUGHTERS AT BEDSIDE FOR 0900 VISITATION. PT SLEEPING. SLEPT THROUGHOUT CONVERSANTION WITH DAUGHTERS REGARDING HER PROGRESS. THEY HAVE CONCERNS ABOUT HER GETTING HER AMBIEN AND ALSO ATIVAN. SHE HAS DIFFICULTY AT HOME KEEPING HER HEAD CLEAR AT NIGHT. PT ALSO HAS TO HAVE WINE EVERY EVENING. HAS BEEN ALCOHOL DEPENDENT AND AMBIEN DEPENDENT FOR MANY YEARS. PT ALSO HAS DEPENDENCY ON BENZOS. LET THEM KNOW I WOULD DISCUSS WITH DR SANDERS. PT LIVES ALONE AND IS INDEPENDENT. MANAGES OWN MEDICATIONS AND STILL WORKS AND DRIVES. DAUGHTERS WORRIED PT MAY NEED ADDITIONAL HELP AT DISCHARGE. WILL CONTACT CASE MANAGEMENT TO GIVE HEADS UP. SPOKE WITH DR SANDERS AFTER VISITATION. DISCUSSED CURRENT MEDICATIONS. HE HAS HAD DISCUSSION IN PAST WITH PATIENT AND DAUGHTERS REGARDING PT LONG TIME USE OF AMBIEN AND RISKS OF DISCONTINUING. I ASKED ABOUT GETTING PATIENT A DIET SINCE HER PRIMARY WAS STILL TUBE FEEDINGS. PT IS SWALLOWING THIN LIQUIDS WITH NO DIFFICULTY. WILL START WITH CLEAR LIQUIDS AND ADVANCE TOLERATED. ALSO ASKED ABOUT HEPARIN ORDERS. WAS GIVEN IN REPORT THAT SHE IS AT 900 UNITS/HR AND RATE HAS BEEN THE SAME FOR SEVERAL DAYS. ORIGINAL ORDER WAS FOR TITRATION. DID NOT SEE WHERE TO KEEP AT A SET RATE. BY VALUES OF MORNING LAB WOULD HAVE BEEN INCREASED BY 100 UNITS/HR. HE ASKED FOR HEPARIN TO BE STOPPED AND ORDER FOR LOVENOX 1MG/KG Q12H WITH FIRST DOSE 6HR AFTER STOPPING HEPARIN DRIP.
[2017-07-08 11:18] LABS: PROTEIN S - FREE 77 % (57-157); PROTEIN S - FUNCTIONAL 80 % (63-140); PROTEIN S - TOTAL 62 % (60-150)
--- NOTE | 2017-07-08 11:56 | NUR ---
PT AWAKE. CONVERSANT. ASKING ABOUT HER PHONE. SAYS HER DAUGHTER TEA LOST IT. CLEAR LIQUID DIET LUNCH TRAY SET UP FOR HER. SHE WAS REPOSITIONED TO BETTER REACH HER TRAY. BED LOW. SIDE RAILS X2
--- NOTE | 2017-07-08 12:26 | NUR ---
RD follow up note Pt visited and chart reviewed. Pt sleeping, spoke with nurse. No issues reported. Diet has advance to clear liquids. pt off tube feed, off vent. meds reviewed on folic acid, thiamin, lasix, flojen, vancomycin Labs reviewed with K 3.3, liver enzymes improving. No significant skin issues, no noted BM though bowel sounds active X4. wt some weight change though likely mulifactorial. No changes, continue to advance diet as tolerated and medically stable. RD to follow.
--- NOTE | 2017-07-08 12:33 | NUR ---
PT SITTING UP IN BED. DAUGHTER AT BEDSIDE. CONVERSANT. SOME CONFUSION. TALKING ABOUT THE TELEVISION ON THE WALL THAT YOU DON'T EVEN HAVE TO TURN ON AND WATCH [employer]DIERS AND ANYTHING YOU WANT, SHE IS POINTING TO THE WALL WITH NOTHING ON IT. DR BURNS HAS BEEN IN TO SEE HER. WANTS PHYSICAL THERAPY CONSULTED. CONTINUE I.S. AND ADD KE
--- NOTE | 2017-07-08 14:36 | NUR ---
PT USED CALL LIGHT. ASKED TO BE CLEANED UP, SAYS HAS HAD BOWEL MOVEMENT. PT HAD SMALL SMEAR. CLEANED UP, PAD CHANGED. REDNESS NOTED AT BUTTOCK, LEFT. REPOSITIONED FOR COMFORT.
--- NOTE | 2017-07-08 15:01 | NUR ---
PT CURRENTLY UP IN CHAIR AT BEDSIDE. HAS BEEN EVALUATED BY PHYSICAL THERAPIST. PT TRANSFERS WITH MINIMAL ASSIST FROM BED TO CHAIR, BUT WILL REQUIRE 2 PERSON ASSIST IF TO GET UP TO TOILET.
--- NOTE | 2017-07-08 16:13 | NUR ---
PT UP IN CHAIR. RESTING COMFORTABLY. CALL LIGHT IN REACH. DENIES NEEDS AT THIS TIME.
--- NOTE | 2017-07-08 18:29 | NUR ---
PT ASSISTED UP TO TOILET FOR BOWEL MOVEMENT. DARK, HARD FORMED STOOL. BLACK UPON WIPING. NO RED BLOOD NOTED. NEEDS 2 PERSON ASSIST AND WALKER.
--- NOTE | 2017-07-08 18:38 | NUR ---
FAMILY AT BEDSIDE FOR VISITATION. PT UP IN CHAIR AT THIS TIME.
[2017-07-08 19:12] LABS: FACTOR II DNA ANALYSIS Negative (())
--- NOTE | 2017-07-08 19:30 | NUR ---
REPORT RECEIVED. ASSESSMENT COMPLTE PER FLOW SHEET. VSS. WILL CONTINUE TO MONITOR
--- NOTE | 2017-07-08 21:00 | NUR ---
FAMILY AT BEDSIDE. GIVEN UPDATE. VSS. WILL CONTINUE TO MONITOR
--- NOTE | 2017-07-08 22:56 | NUR ---
PT INCREASINGLY CONFUSED. ATTEMPT TO GET OOB. REORIENTED BED ALARM ON WILL CONTINUE TO MONITOR
--- NOTE | 2017-07-08 23:28 | NUR ---
REASSESSMENT COMPLETE PER FLOW SHEET. VSS. INCREASINGLY CONFUSED. REORIENTED. ATTEMPT TO GET OOB REPOSITIONED UP IN BED. BED ALARM ON.
[2017-07-09] VITALS (22 sets, daily range): BP systolic 100–155; BP diastolic 49–99
--- NOTE | 2017-07-09 01:20 | NUR ---
BED ALARMING. ASSISTED BACK IN BED. NO NEW CHANGES
[2017-07-09 03:12] LABS: LUPUS - INTERPRETATION Comment: (()); LUPUS - THROMBIN NEUT 19.7 sec (0.0-23.0); LUPUS - THROMBIN TIME 95.9 sec (0.0-23.0); LUPUS - THROMBIN TIME MIX 46.4 sec (0.0-23.0); LUPUS - dRVVT 40.6 sec (0.0-47.0); PROTEIN C - ANTIGEN 70 % (60-150); PROTEIN C - FUNCTIONAL 91 % (73-180); PTT-LA 44.3 sec (0.0-51.9)
--- NOTE | 2017-07-09 03:12 | NUR ---
REASSESSMENT COMPLETE PER FLOW SHEET. VSS. NO NEW CHANGES.
--- NOTE | 2017-07-09 04:14 | NUR ---
RADIOLOGY AT BEDSIDE. VSS. NO NEW CHANGES. WILL CONTINUE TO MONITOR
--- NOTE | 2017-07-09 05:20 | NUR ---
PT SLEEPING COMFORTABLY. VSS. NO NEW CHANGES. WILL CONTINUE TO MONITOR
[2017-07-09 06:54] LABS: BASOPHILS 0.3 % (0-2); EOSINOPHILS 4.5 % (0-7); HEMATOCRIT 30.1 % (36.0-48.0); IMMATURE GRANULOCYTES 0.9 % (0-5); LYMPHOCYTES 16.1 % (15-50); MCH 30.6 pg (26.0-34.0); MCHC 33.2 g/dL (31.0-37.0); MONOCYTES 14.4 % (2-11); NEUTROPHILS 63.8 % (40-80); PLATELET COUNT 280 10x3/uL (130-400); RBC 3.27 10x6/uL (4.00-5.40); RDW 17.1 % (11.5-14.5); WBC 11.6 10x3/uL (4.8-10.8)
[2017-07-09 07:06] LABS: ALBUMIN 2.1 g/dL (3.4-5.0); ALKALINE PHOSPHATASE 76 U/L (46-116); BILIRUBIN - TOTAL 0.69 mg/dL (0.2-1.3); CALC OSMOLALITY 275 mosm/kg (275-300); CALCIUM 8.2 mg/dL (8.5-10.1); CARBON DIOXIDE 27.8 mmol/L (21.0-32.0); CHLORIDE - SERUM 104 mmol/L (98-107); CREATININE - SERUM 0.6 mg/dL (0.6-1.3); GLUCOSE 89 mg/dL (74-106); MAGNESIUM - SERUM 1.8 mg/dL (1.8-2.4); POTASSIUM - SERUM 3.2 mmol/L (3.5-5.1); PROTEIN - SERUM 5.3 g/dL (6.4-8.2); SODIUM 139 mmol/L (136-145); UREA NITROGEN 11 mg/dL (7-18); eGFR NON AFRICAN AMERICAN > 90 mL/min (90-120)
[2017-07-09 07:07] LABS: ALT (SGPT) 179 U/L (10-68)
--- NOTE | 2017-07-09 10:00 | NUR ---
DIGITAL REMOVAL OF BM. HARD DARK BM NOTED.
--- NOTE | 2017-07-09 19:40 | NUR ---
PT AOX3 WITH PERIODS OF CONFUSION, COOPERATIVE. RESPIRATIONS UNLABORED. LUNG SOUNDS CLEAR. S1S2 HEARD, PERIPHERAL PULSES PRESENT. BOWEL SOUNDS ACTIVE IN ALL QUADRANTS. GENERALIZED WEAKNESS PRESENT, AMBULATES WITH ASSIST. STAGE 2 PRESSURE ULCER TO BUTTOCK. PT REPOSITIONED IN BED WITH PARTIAL LINEN CHANGE. CALL LIGHT AND BEDSIDE TABLE WITHIN PT REACH. CPOC.
--- NOTE | 2017-07-09 21:30 | NUR ---
NO VISITORS AT THIS TIME. PT REPOSITIONED FOR COMFORT. VSS, NO S/S OF DISTRESS. DENIES FURTHER NEEDS. CALL LIGHT AND BEDSIDE TABLE WITHIN PT REACH. CPOC.
--- NOTE | 2017-07-09 23:50 | NUR ---
NO ACUTE CHANGES AT THIS TIME. VSS, NO S/S OF DISTRESS OR PAIN. ORAL CARE ADM. PT REPOSITIONED IN BED FOR COMFORT. DENIES FURTHER NEEDS. CALL LIGHT WITHIN PT REACH. CPOC.
[2017-07-10 03:00] VITALS: BP 119/53
--- NOTE | 2017-07-10 03:40 | NUR ---
NO ACUTE CHANGES AT THIS TIME. PT REPOSITIONED IN BED FOR COMFORT. PARTIAL LINEN CHANGE COMPLETE. VSS, NO S/S OF DISTRESS OR PAIN AT THIS TIME. RESTING COMFORTABLY. DENIES NEEDS. CALL LIGHT WITHIN PT REACH. CPOC.
[2017-07-10 06:06] LABS: BASOPHILS 0.5 % (0-2); EOSINOPHILS 5.2 % (0-7); HEMATOCRIT 30.7 % (36.0-48.0); HEMOGLOBIN 10.1 g/dL (12-16); IMMATURE GRANULOCYTES 0.8 % (0-5); MCH 30.3 pg (26.0-34.0); MCHC 32.9 g/dL (31.0-37.0); MCV 92.2 fL (80.0-100.0); MONOCYTES 18.6 % (2-11); NEUTROPHILS 61.9 % (40-80); PLATELET COUNT 282 10x3/uL (130-400); RBC 3.33 10x6/uL (4.00-5.40); RDW 17.4 % (11.5-14.5)
[2017-07-10 06:08] LABS: WBC 8.5 10x3/uL (4.8-10.8)
--- NOTE | 2017-07-10 06:20 | NUR ---
NO VISITORS AT THIS TIME. PT SLEEPING QUIETLY WITH UNLABORED RESPIRATIONS. VSS. PT ALLOWED TO CONTINUE SLEEPING UNDISTURBED AT THIS TIME. CALL LIGHT WITHIN PT REACH. CPOC.
[2017-07-10 06:23] LABS: ALBUMIN 2.3 g/dL (3.4-5.0); ALKALINE PHOSPHATASE 80 U/L (46-116); ALT (SGPT) 149 U/L (10-68); BILIRUBIN - TOTAL 0.66 mg/dL (0.2-1.3); CALC OSMOLALITY 272 mosm/kg (275-300); CALCIUM 8.6 mg/dL (8.5-10.1); CHLORIDE - SERUM 101 mmol/L (98-107); CREATININE - SERUM 0.7 mg/dL (0.6-1.3); GLUCOSE 103 mg/dL (74-106); MAGNESIUM - SERUM 1.8 mg/dL (1.8-2.4); PROTEIN - SERUM 5.6 g/dL (6.4-8.2); SODIUM 136 mmol/L (136-145); UREA NITROGEN 15 mg/dL (7-18); eGFR NON AFRICAN AMERICAN 85 mL/min (90-120)
[2017-07-10 06:24] LABS: POTASSIUM - SERUM 2.9 mmol/L (3.5-5.1)
[2017-07-10 07:00] VITALS: BP 144/61
--- NOTE | 2017-07-10 07:25 | NUR ---
UP TO CHAIR FOR BREAKFAST.
[2017-07-10 11:00] VITALS: BP 120/58
--- NOTE | 2017-07-10 13:12 | NUR ---
COMPLETE BATH, SHAMPOO AND LINEN CHANGE. BACK TO CHAIR.
--- NOTE | 2017-07-10 14:38 | NUR ---
BACK TO BED.
[2017-07-10 15:00] VITALS: BP 132/60
--- NOTE | 2017-07-10 17:00 | NUR ---
REPORT CALLED TO [facility]. WILL TRANSFER WHEN PT DONE EATING DINNER. PT'S DAUGHTER'S AT BEDSIDE WITH PERSONAL BELONGINGS.
--- NOTE | 2017-07-10 17:45 | NUR ---
LT BUTT CHEEK NOTED WITH STG 2 OPEN AREA 4CM X 2CM APPLIED BUTTERFLY DUODERM PT TOLERATED WELL
[2017-07-10 20:00] VITALS: BP 126/60
[2017-07-11] VITALS: BP 151/71
[2017-07-11 05:27] LABS: BASOPHILS 0.7 % (0-2); EOSINOPHILS 5.1 % (0-7); HEMATOCRIT 34.4 % (36.0-48.0); HEMOGLOBIN 11.2 g/dL (12-16); IMMATURE GRANULOCYTES 0.6 % (0-5); LYMPHOCYTES 20.4 % (15-50); MCH 30.6 pg (26.0-34.0); MCHC 32.6 g/dL (31.0-37.0); MEAN PLATELET VOLUME 10.8 fL (7.4-10.4); MONOCYTES 20.8 % (2-11); NEUTROPHILS 52.4 % (40-80); RBC 3.66 10x6/uL (4.00-5.40); RDW 17.7 % (11.5-14.5); WBC 8.2 10x3/uL (4.8-10.8)
[2017-07-11 05:33] LABS: PLATELET COUNT 365 10x3/uL (130-400)
[2017-07-11 05:37] LABS: ALBUMIN 2.7 g/dL (3.4-5.0); ANION GAP 10.6 mmol/L (8-16); BILIRUBIN - TOTAL 0.59 mg/dL (0.2-1.3); CALCIUM 8.8 mg/dL (8.5-10.1); CARBON DIOXIDE 27.6 mmol/L (21.0-32.0); CREATININE - SERUM 0.8 mg/dL (0.6-1.3); MAGNESIUM - SERUM 1.6 mg/dL (1.8-2.4); POTASSIUM - SERUM 3.2 mmol/L (3.5-5.1); PROTEIN - SERUM 6.5 g/dL (6.4-8.2)
[2017-07-11 05:55] VITALS: BP 127/67
--- NOTE | 2017-07-11 07:30 | NUR ---
RECEIVED PT AAOX4 SITTING IN CHAIR DENIES ANY NEEDS OR DISCOMFORT AT THIS TIME
[2017-07-11 08:00] VITALS: BP 154/82
[2017-07-11 12:00] VITALS: BP 136/77
[2017-07-11 16:00] VITALS: BP 142/72
[2017-07-11 20:00] VITALS: BP 133/71
--- NOTE | 2017-07-12 02:07 | NUR ---
PT RESTING WITH EYES CLSED AND RESP EVEN UNLABORED. CALL LIGHT WITHIN REACH. NO NEEDS VOICED. WILL CONT TO MONITOR.
--- NOTE | 2017-07-12 03:02 | NUR ---
PT FOUND IN ANOTHER PT'S ROOM, TAKING UNDER GARMENTS OFF. PT ASSISTED BACK TO ROOM AND BACK INTO BED. BED ALARM SET. PT IS CONFUSED TO PLACE AND TIME. REPEATEDLY ASKS "WHAT DO I HAVE TO DO TO GRADUATE THIS PROGRAM". EXPLAINED TO PT SHE IS IN THE HOSPITAL AND WHY SHE IS HERE. PT VERBALIZED UNDERSTANDING. CALL LIGHT PLACED WITHIN REACH. WILL MONITOR FREQ FOR NEEDS AND SAFETY.
[2017-07-12 04:00] VITALS: BP 128/62
[2017-07-12 05:34] LABS: BASOPHILS 0.4 % (0-2); EOSINOPHILS 4.7 % (0-7); HEMATOCRIT 32.7 % (36.0-48.0); HEMOGLOBIN 10.7 g/dL (12-16); IMMATURE GRANULOCYTES 0.4 % (0-5); MCH 30.4 pg (26.0-34.0); MCHC 32.7 g/dL (31.0-37.0); MCV 92.9 fL (80.0-100.0); MEAN PLATELET VOLUME 10.2 fL (7.4-10.4); MONOCYTES 15.8 % (2-11); NEUTROPHILS 54.7 % (40-80); PLATELET COUNT 367 10x3/uL (130-400); RBC 3.52 10x6/uL (4.00-5.40); RDW 17.6 % (11.5-14.5); WBC 7.5 10x3/uL (4.8-10.8)
[2017-07-12 06:20] LABS: ALBUMIN 2.7 g/dL (3.4-5.0); ANION GAP 12.4 mmol/L (8-16); BILIRUBIN - TOTAL 0.6 mg/dL (0.2-1.3); CARBON DIOXIDE 26.9 mmol/L (21.0-32.0); CREATININE - SERUM 0.9 mg/dL (0.6-1.3); MAGNESIUM - SERUM 1.4 mg/dL (1.8-2.4); POTASSIUM - SERUM 3.3 mmol/L (3.5-5.1); PROTEIN - SERUM 6.1 g/dL (6.4-8.2)
[2017-07-12 08:00] VITALS: BP 127/69
--- NOTE | 2017-07-12 10:20 | NUR ---
TELEMETRY SR. UP IN CHAIR WITH CALL LIGHT IN REACH. FAMILY AT BS. WILL CONT. PLAN OF CARE.
--- NOTE | 2017-07-12 10:46 | NUR ---
UP AMBULATING HALLWAY WITH FAMILY MEMBER.
[2017-07-12 12:00] VITALS: BP 123/64
--- NOTE | 2017-07-12 13:13 | NUR ---
Patient Name: HAYDEE KIRBY Encounter No: [id number] : 1935 Primary Insurance: MEDICARE A & B Anticipated DC Date: 07-13-2017 Planned Disposition: Home DCP follow-up note: CM RECEIVED REQEUST TO MEET WITH PT AND DAUGHTER IN ROOM. CM MET WITH PT AND DAUGHTER IN ROOM TO DISCUSS DISCHARGE PLANNING AND NEEDS. PT REPORTS SHE IS NOT GOING TO GO TO INPATIENT REHAB AND PLANS TO GO HOME ALONE AND INDEPENDENTLY. PT'S DAUGHTER PLANS TO GO HOME WHEN PT IS DISCHARGED FROM THE HOSPITAL. CM DISCUSSED AVAILABILITY OF REHAB SERVICES, MEDICAL EQUIPMENT AND HOME HEALTH SERVICES. PT DENIES NEEDS OF REHAB, EQUIPMENT OR HOME HEALTH. PT REPORTS SHE IS WELL ENOUGH TO GO HOME ALONE AND HAS NOT NEED OF HOME HEALTH. CM DISCUSSED HOW TO CONTACT PRIMARY CARE DOCTOR AFTER DISCHARGE IF PT CHANGES MIND ABOUT HOME HEALTH, PT REPORTED UNDERSTANDING. CM PROVIDED PERSONAL CARE AGENCY INFORMTION AND AGENCY LISTING. PT AND FAMILY WILL CONSIDER HIRING CAREGIVER OR SITTER IF NEEDED. IMPORTANT MESSAGE FROM MEDICARE PROVIDED AND EXPLAINED. PT PLANS TO DISCHARGE HOME ALONE, IS CONSIDERING HIRING PRIVATE PAY SERVICES IF NEEDED, DENIES NEED OF REHAB, EQUIPMENT OR HOME HEALTH AT THIS TIME. FAMILY TO TRANSPORT HOME AT DISCHARGE. CM TO FOLLOW AND ASSIST IF NEEDED. Johny Gustafson, CASE MANAGEMENT
[2017-07-12 16:00] VITALS: BP 113/60
--- NOTE | 2017-07-12 18:56 | NUR ---
OT NOTE: PT COMPLETED BUE AROM EXS FOR INCREASED AX TOLERANCE. PT COMPLETED SITTING BALANCE AXS WITH SBA FOR INCREASED I WITH ADLS, PT COMPLETED SIT TO STANDS WITH SBA. THANK YOU, NOAH WILLIAM/Brie
[2017-07-12 20:51] VITALS: BP 105/65
--- NOTE | 2017-07-12 21:35 | NUR ---
BED TIME MEDS GIVEN. RESTING COMFORTABLY. NO NEEDS AT THIS TIME.
[2017-07-13 01:15] VITALS: BP 143/67
[2017-07-13 03:45] VITALS: BP 134/67
[2017-07-13 08:00] VITALS: BP 152/64
--- NOTE | 2017-07-13 10:15 | NUR ---
TELEMETRY SR. UP TO CHAIR WITH CALL LIGHT IN REACH. WILL CONT. PLAN OF CARE.
--- NOTE | 2017-07-13 12:25 | NUR ---
Nutrition Follow Up: Pt is eating 55% meal avg on an AHA diet. +BM 07/10/17. Wt loss noted. Labs reviewed. Meds noted including Lasix. Rec continue current diet. RD following.
[2017-07-13 16:00] VITALS: BP 130/65
[2017-07-13] MEDS ORDERED: XARELTO15 MG PO (17:55)
[2017-07-13] MEDS ORDERED: LASIX40 MG PO (17:58)
[2017-07-13] MEDS ORDERED: K-TAB10 MEQ PO (17:59)
--- NOTE | 2017-07-13 19:44 | NUR ---
OT NOTE: PT REQUIRED SBA FOR ADL MOB. PT COMPLETED DYNAMIC SITTING BALANCE WITH SUPV. PT COMPLETED BUE AROM EXS AND REQUIRED NO REST BREAKS. THANK YOU, NOAH WILLIAM/Brie
--- NOTE | 2017-07-13 20:27 | NUR ---
PT AWAKE, ALERT, ORIENTED, HAS BEEN WALKING AROUND THE UNIT, C/O BEING COLD, BUT OTHERWISE NO NEEDS. PT IS RECEIVING HER NEBULIZER TX AT THIS TIME. WILL CONTINUE TO MONITOR PT, AND I DID ADD ANOTHER BLANKET TO PT PER PT REQUEST. BED LOW, CALL LIGHT IN REACH, SIDE RAILS X 2, HOB 30 DEGREES. PT STATES SHE DOES UNDERSTAND HOW AND WHEN TO USE THE CALL LIGHT AND WILL CALL WITH ANY NEEDS.
[2017-07-13 21:26] VITALS: BP 129/59
--- NOTE | 2017-07-14 00:38 | NUR ---
PT LYING ON RIGHT SIDE, EYES CLOSED, RESPIRATIONS EVEN AND UNLABORED. CONTINUE TO MONITOR CLOSELY. BED LOW, CALL LIGHT IN REACH, SIDE RAILS X 2, HOB 20 DEGREES.
[2017-07-14 06:47] LABS: BASOPHILS 0.5 % (0-2); EOSINOPHILS 4.3 % (0-7); HEMATOCRIT 35.6 % (36.0-48.0); HEMOGLOBIN 11.6 g/dL (12-16); IMMATURE GRANULOCYTES 0.6 % (0-5); LYMPHOCYTES 25.9 % (15-50); MCH 30.5 pg (26.0-34.0); MCHC 32.6 g/dL (31.0-37.0); MCV 93.7 fL (80.0-100.0); MEAN PLATELET VOLUME 10.6 fL (7.4-10.4); MONOCYTES 12.4 % (2-11); NEUTROPHILS 56.3 % (40-80); PLATELET COUNT 440 10x3/uL (130-400); RDW 17.1 % (11.5-14.5); WBC 7.9 10x3/uL (4.8-10.8)
[2017-07-14 07:16] LABS: BILIRUBIN - TOTAL 0.58 mg/dL (0.2-1.3); CARBON DIOXIDE 29.3 mmol/L (21.0-32.0); CREATININE - SERUM 0.8 mg/dL (0.6-1.3); PROTEIN - SERUM 6.7 g/dL (6.4-8.2)
[2017-07-14 07:17] LABS: ANION GAP 12.7 mmol/L (8-16)
[2017-07-14 08:16] VITALS: BP 154/70
--- NOTE | 2017-07-14 09:49 | NUR ---
CVL AND TELEMETRY DCD FOR DC.
--- NOTE | 2017-07-14 10:16 | NUR ---
Patient for discharge today. Cm went to bedside to [facility]. Patient declined. Cm explained how to obtain home health post discharge. She is aware of the process, DR Douglas explained "last night". Denied any additional need.
--- NOTE | 2017-07-14 10:35 | NUR ---
DC PLANS GIVEN. UNDERSTANDING VOICED. ESCORTED TO CAR BY W/C.
== END 2017-07-14 10:40 | disposition home or self-care (01) | DRG 207 ==
LOC: D.ER 08:00 → D.CVICU 15:43 → D.M2 07-10 17:57
PROVIDERS: Family Medicine; Internal Medicine Gastroenterology; Internal Medicine Pulmonary Disease; ADMIT Family Medicine
PROC: 0T9B70Z Drainage of Bladder with Drainage Device, Via Natural or Artificial Opening (ICD-10-PCS; 2017-07-02)
PROC: 0BH17EZ Insertion of Endotracheal Airway into Trachea, Via Natural or Artificial Opening (ICD-10-PCS; principal; 2017-07-03)
PROC: 5A1955Z Respiratory Ventilation, Greater than 96 Consecutive Hours (ICD-10-PCS; 2017-07-03)
PROC: 02HV33Z Insertion of Infusion Device into Superior Vena Cava, Percutaneous Approach (ICD-10-PCS; 2017-07-03)
PROC: 0D9670Z Drainage of Stomach with Drainage Device, Via Natural or Artificial Opening (ICD-10-PCS; 2017-07-03)
DX: J96.01 Acute respiratory failure with hypoxia (principal); I50.21 Acute systolic (congestive) heart failure; G93.41 Metabolic encephalopathy; I26.99 Other pulmonary embolism without acute cor pulmonale; I21.3 ST elevation (STEMI) myocardial infarction of unspecified site; J18.9 Pneumonia, unspecified organism; D62 Acute posthemorrhagic anemia; F05 Delirium due to known physiological condition; F13.20 Sedative, hypnotic or anxiolytic dependence, uncomplicated; J98.11 Atelectasis; I82.401 Acute embolism and thrombosis of unspecified deep veins of right lower extremity; I24.8 Other forms of acute ischemic heart disease; J44.0 Chronic obstructive pulmonary disease with (acute) lower respiratory infection; I42.9 Cardiomyopathy, unspecified; J95.84 Transfusion-related acute lung injury (TRALI); I25.10 Atherosclerotic heart disease of native coronary artery without angina pectoris; I11.0 Hypertensive heart disease with heart failure; F41.9 Anxiety disorder, unspecified; I49.8 Other specified cardiac arrhythmias; F10.10 Alcohol abuse, uncomplicated; I08.1 Rheumatic disorders of both mitral and tricuspid valves; E83.42 Hypomagnesemia; E78.5 Hyperlipidemia, unspecified; E87.6 Hypokalemia; Z78.1 Physical restraint status; Z95.1 Presence of aortocoronary bypass graft; Z95.5 Presence of coronary angioplasty implant and graft; K70.10 Alcoholic hepatitis without ascites

== ENCOUNTER → 2018-02-04 08:49 | Outpatient (CLI) | payer MEDICARE, OTHER ==
[2017-07-03 10:48] VITALS: BMI 21.5
[~2018-02-04 08:49] MED LIST changes: +K-TAB10 MEQ PO; +LASIX40 MG PO; +XARELTO15 MG PO
== END | disposition home or self-care (01) ==
LOC: D.RT 08:49
DX: J44.9 Chronic obstructive pulmonary disease, unspecified (principal); I26.99 Other pulmonary embolism without acute cor pulmonale